=== PATIENT | female | born 1935 | race Caucasian/White ===

== ENCOUNTER 2016-04-02 18:20 | Emergency (ER) | payer MEDICARE, OTHER ==
[~2016-04-02 18:20] MED LIST: ASPI81TA82 PO; CLOT1%T TOPICAL; LEVE500T10 PO; METO50TA OR; SENN8.8S7 PO; SERO200T PO; WAL-10TA2 PO
[2016-04-02 18:23] VITALS: BP 132/85; PULSE 97; RESP 20; TEMP 97.4; O2SAT 96
--- NOTE | 2016-04-02 18:26 | PD ---
HPI Chief Complaint: Cold / Flu Symptoms Time Seen by Provider: 18:27 Travel History International Travel<30 days: No Contact w/Intl Traveler<30days: No Traveled to known affect area: No History of Present Illness HPI 80-year-old female was brought to the emergency room by EMS for fever, cough and lethargy. Patient has significant dementia and her daughter is her primary pulvi mixer operator. Her daughter followed the ambulance and she is currently here giving the history. Patient has history of the multiple UTIs when she has presented in similar manner in the past. Daughter has been giving her pured food and liquid and patient has been taking her medications. However she was concerned because of the cough and wanted her to be seen. She was unable to bring her by herself since patient needs a lot of assistance usually. Because of that reason patient gets home visits by her doctor. Her vital signs were stable in the emergency room. Patient has significant dementia and appears sleepy and unable to give any meaningful history. PFSH Past Medical History Narrative Medical List of her past medical history was reviewed from the nursing note. Alzheimer's Disease: Yes Anxiety: Yes Depression: Yes Cancer: No Cardiovascular Problems: Yes High Cholesterol: Yes Congestive Heart Failure: No Cerebrovascular Accident: No Dementia: Yes Diabetes: No Diminished Hearing: Yes Endocrine: Yes (PARATHYROID) Gastrointestinal Disorders: Yes GERD: Yes Genitourinary: Yes (INCONTINENT, UTIS) Immune Disorder: No Implanted Vascular Access Dvce: No Kidney Stones: No Musculoskeletal: Yes Psychiatric: Yes Reproductive: No Respiratory: No Immunizations Current: Yes Seizures: No Menopausal: Yes Past Surgical History Abdominal Surgery: No Cardiac Surgery: Yes (TRIPLE BYPASS CABG) 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 ) Genitourinary Surgery: No Gynecologic Surgery: No Other Surgery: Yes Social History Alcohol Use: No Tobacco Use: No Substance Use: No (UNABLE TO ASSESS) Allergies-Medications (Allergen,Severity, Reaction): Coded Allergies: Namenda (Unverified Allergy, Severe, Confusion, 04/02/16) Lovastatin (Unverified Allergy, Intermediate, unknown per family, 04/02/16) Risperidone (Unverified Allergy, Intermediate, Confusion, 04/02/16) Vesicare (Unverified Allergy, Intermediate, Confusion, 04/02/16) Macrobid (Verified Allergy, Unknown, 04/02/16) Penicillin (Verified Allergy, Unknown, UNKNOWN REACTION, 04/02/16) *MDRO Multi-Drug Resistant Organism (Verified Adverse Reaction, Unknown, ) KPC+Klebsiella Pneu (urine-12/27/15) Comments List of allergies reviewed from the nursing note. Reported Meds & Prescriptions Reported Meds & Active Scripts Active Zithromax Liq (Azithromycin) 200 Mg/5 Ml Susp 250 Mg PO DIRECTED 5 Days Take 500 mg (12.5 mL) Day 1 then 250 mg (6.25 mL) on Days 2 to 5. Reported Seroquel (Quetiapine Fumarate) 200 Mg Tab 200 Mg PO BID Levetiracetam 500 Mg Tab 500 Mg PO BID Metoprolol Tartrate 25 Mg Tab 25 Mg PO DAILY Narrative Medication List of her home medications reviewed from the nursing note. Review of Systems Except as stated in HPI: all other systems reviewed are Neg Physical Exam Narrative GENERAL: Elderly, sleepy, dementia, agitated upon exam SKIN: Warm and dry. HEAD: Atraumatic. Normocephalic. EYES: Pupils equal and round. No scleral icterus. No injection or drainage. ENT: No nasal bleeding or discharge. Mucous membranes pink and moist. NECK: Trachea midline. No JVD. CARDIOVASCULAR: Regular rate and rhythm. No murmur appreciated. RESPIRATORY: No accessory muscle use. Clear to auscultation. Breath sounds equal bilaterally. GASTROINTESTINAL: Abdomen soft, non-tender, nondistended. Hepatic and splenic margins not palpable. MUSCULOSKELETAL: No obvious deformities. No clubbing. No cyanosis. No edema. NEUROLOGICAL: Somnolent, gets agitated on exam, uses clear words when talking but does not make sense. As per daughter that is her baseline. PSYCHIATRIC: Agitated, unable to assess Data Data Last Documented VS Vital Signs Date Time Temp Pulse Resp B/P Pulse Ox O2 Delivery O2 Flow Rate FiO2 04/03/16 01:00 78 18 130/86 97 04/02/16 18:23 97.4 Orders Electrocardiogram (04/02/16 18:40) Basic Metabolic Panel (Bmp) (04/02/16 18:40) Complete Blood Count With Diff (04/02/16 18:40) Troponin I (04/02/16 18:40) Lactic Acid Sepsis Protocol (04/02/16 18:40) Urinalysis - C+S If Indicated (04/02/16 18:40) Blood Culture (04/02/16 18:40) Chest, Single Ap (04/02/16 18:40) Ct Brain W/O Iv Contrast(Rout) (04/02/16 18:40) Blood Glucose (04/02/16 18:40) Ecg Monitoring (04/02/16 18:40) Iv Access Insert/Monitor (04/02/16 18:40) Oximetry (04/02/16 18:40) Sodium Chloride 0.9% Flush (Ns Flush) (04/02/16 18:45) ^ Straight Catheter (04/02/16 18:40) Influenzae A/B Antigen (04/02/16 18:40) Group A Rapid Strep Screen (04/02/16 20:30) Strep Culture (Group A) (04/02/16 20:44) Azithromycin Inj (Zithromax Inj) (04/02/16 21:15) Sodium Chlorid 0.9% 500 Ml Inj (Ns 500 M (04/02/16 22:00) Labs Laboratory Tests Test 04/02/16 04/02/16 18:55 19:55 White Blood Count 6.2 TH/MM3 Red Blood Count 4.34 MIL/MM3 Hemoglobin 13.2 GM/DL Hematocrit 39.0 % Mean Corpuscular Volume 89.9 FL Mean Corpuscular Hemoglobin 30.4 PG Mean Corpuscular Hemoglobin 33.8 % Concent Red Cell Distribution Width 12.9 % Platelet Count 202 TH/MM3 Mean Platelet Volume 8.8 FL Neutrophils (%) (Auto) 63.6 % Lymphocytes (%) (Auto) 21.8 % Monocytes (%) (Auto) 9.2 % Eosinophils (%) (Auto) 4.0 % Basophils (%) (Auto) 1.4 % Neutrophils # (Auto) 4.0 TH/MM3 Lymphocytes # (Auto) 1.3 TH/MM3 Monocytes # (Auto) 0.6 TH/MM3 Eosinophils # (Auto) 0.2 TH/MM3 Basophils # (Auto) 0.1 TH/MM3 CBC Comment DIFF FINAL Differential Comment Sodium Level 139 MEQ/L Potassium Level 4.3 MEQ/L Chloride Level 104 MEQ/L Carbon Dioxide Level 24.8 MEQ/L Anion Gap 10 MEQ/L Blood Urea Nitrogen 20 MG/DL Creatinine 0.71 MG/DL Estimat Glomerular Filtration 79 ML/MIN Rate Random Glucose 110 MG/DL Lactic Acid Level 1.4 mmol/L Calcium Level 9.4 MG/DL Troponin I LESS THAN 0.02 NG/ML Urine Color YELLOW Urine Turbidity CLEAR Urine pH 6.0 Urine Specific [place] 1.022 Urine Protein NEG mg/dL Urine Glucose (UA) NEG mg/dL Urine Ketones NEG mg/dL Urine Occult Blood SMALL Urine Nitrite NEG Urine Bilirubin NEG Urine Leukocyte Esterase NEG Urine RBC 4-9 /hpf Urine WBC 0-2 /hpf Urine Squamous Epithelial 0-5 /hpf Cells Urine Bacteria NONE /hpf Microscopic Urinalysis Comment CATH-CULT NOT IND MDM Medical Decision Making Medical Screen Exam Complete: Yes Emergency Medical Condition: Yes Medical Record Reviewed: Yes Interpretation(s) Twelve-lead EKG was reviewed by me. Normal sinus rhythm, normal axis, nonspecific ST-T wave changes. Heart rate of 90 bpm. Differential Diagnosis UTI, pneumonia, sepsis, dehydration, CVA Narrative Course 9:19 PM blood test results and urine analysis is back and within normal limits. Chest x-ray suggestive of left lower lobe atelectasis. I discussed all this with the daughter. She was once again concerned about the cough and I told her that I would treat her with antibiotic with possible developing pneumonia although blood test is not really suggestive. Fact that the cough is concerning and she has fever she will be treated for that. Daughter wanted to take her home and I think it is not unreasonable at this point. Daughter seems quite capable of taking care of her and has been doing it for quite some time now. As per daughter every time she gets admitted to the hospital her dementia worsens and she gets very difficult to handle and she feels more comfortable at home. She was given instructions regarding the symptoms to bring her back to the emergency room. Asked her to call her primary care doctor tomorrow and have the home visit done for Thursday. I'm comfortable discharging her home at this point. Procedures EKG Prior to Arrival: No Diagnosis Primary Impression: Fever Qualified Code: R50.9 - Fever, unspecified fever cause Additional Impressions: Dementia Qualified Code: F03.90 - Dementia without behavioral disturbance, unspecified dementia type Pneumonia Qualified Code: J18.1 - Pneumonia of left lower lobe due to infectious organism Referrals: Primary Care Physician 2 days Additional Instructions: Please return to the ER if symptoms worsen or any other new concerns like respiratory distress, worsening lethargy, poor oral intake. Otherwise take the medication as per the prescription direction and have her primary care see her on Thursday. Med/Other Pt SpecificInfo: Prescription(s) given Scripts Azithromycin Liq (Zithromax Liq)200 Mg/5 Ml [id number] Mg PO DIRECTED 5 Days Ref 0 Take 500 mg (12.5 mL) Day 1 then 250 mg (6.25 mL) on Days 2 to 5. Prov:Ashley Gillespie MD 04/02/16 Disposition: 01 DISCHARGE HOME Condition: Stable Ashley Gillespie MD Apr 02, 2016 18:26
[2016-04-02] MEDS ORDERED: METO25TA3 PO (18:28)
[2016-04-02] MEDS ORDERED: LEVE500T8 PO (18:28)
[2016-04-02] MEDS ORDERED: SERO200T PO (18:28)
[2016-04-02] MEDS ORDERED: SODIUM CHLORIDE 0.9% FLUSH 5 ML FLUSH IVF PRN (18:45)
[2016-04-02 19:05] VITALS: O2SAT 97
[2016-04-02 19:14] LABS: BASOPHIL # 0.1 TH/MM3 (0-0.2); BASOPHIL % 1.4 % (0.0-2.0); EOSINOPHIL # 0.2 TH/MM3 (0-0.4); HEMO FLAGS DIFF FINAL; LYMPH % 21.8 % (9.0-44.0); LYMPHOCYTE # 1.3 TH/MM3 (1.0-4.8); MEAN CELL VOLUME 89.9 FL (80.0-100.0); MEAN CORPUSCULAR HEMOGLOBIN 30.4 PG (27.0-34.0); MEAN CORPUSCULAR HGB CONC 33.8 % (32.0-36.0); MONO % 9.2 % (0.0-8.0); NEUT % 63.6 % (16.0-70.0); PLATELET COUNT 202 TH/MM3 (150-450); RED BLOOD COUNT 4.34 MIL/MM3 (4.00-5.30); RED CELL DISTRIBUTION WIDTH 12.9 % (11.6-17.2); WHITE BLOOD COUNT 6.2 TH/MM3 (4.0-11.0)
[2016-04-02 19:20] LABS: CHLORIDE 104 MEQ/L (98-107); POTASSIUM 4.3 MEQ/L (3.5-5.1); SODIUM (NA) 139 MEQ/L (136-145)
[2016-04-02 19:23] LABS: ANION GAP 10 MEQ/L (5-15); BICARBONATE 24.8 MEQ/L (21.0-32.0); BLOOD UREA NITROGEN 20 MG/DL (7-18)
[2016-04-02 19:26] LABS: GLOMERULAR FILTRATION RATE 79 ML/MIN (>89)
--- NOTE | 2016-04-02 19:46 | RADHPO ---
EXAM DATE/TIME: 04/02/2016 19:26 [facility] COMPARISON: CHEST SINGLE AP, December 27, 2015, 12:13. CHEST SINGLE AP, December 29, 2015, 10:54. INDICATIONS : Syncopal episode today MEDICAL HISTORY : Hypertension. Cardiovascular disease. SURGICAL HISTORY : CABG. ENCOUNTER: Initial ACUITY: 1 day PAIN SCORE: Non-responsive. LOCATION: Bilateral chest FINDINGS: A single view of the chest demonstrates the lungs to be symmetrically aerated without evidence of mas s, infiltrate or effusion. Minimal left basilar density. Cardiomegaly and CABG. The cardiomediastinal contours are unremarkable. Osseous structures are intact. CONCLUSION: 1. Cardiomegaly and previous CABG. 2. Minimal left basilar density likely representing atelectasis/scarring. Parviz Bonner MD on April 02, 2016 at 19:43 Board Certified Radiologist. This report was verified electronically.
[2016-04-02 20:07] LABS: BLOOD, URINE SMALL (NEG); GLUCOSE,URINE NEG (NEG); KETONE, URINE NEG (NEG); NITRITE,URINE NEG (NEG)
[2016-04-02 20:09] LABS: URINE COLOR YELLOW (YELLW/STRAW)
[2016-04-02 20:11] LABS: COMMENT (UR) CATH-CULT NOT IND; CULTURE IF INDICATED CATH CULTURE NOT IND; SQUAMOUS EPITHELIAL CELL URINE 0-5 /hpf (0-5); WBC, URINE 0-2 /hpf (0-5)
--- NOTE | 2016-04-02 20:11 | RADHPO ---
EXAM DATE/TIME: 04/02/2016 19:32 [facility] COMPARISON: CT BRAIN W/O CONTRAST, December 27, 2015, 11:42. INDICATIONS : Altered mental status and general weakness. RADIATION DOSE: 39.18 CTDIvol (mGy) MEDICAL HISTORY : Cardiovascular disease. Cerebrovascular disease. Hypertension.Alzheimer's and dementia. SURGICAL HISTORY : CABG ENCOUNTER: Initial ACUITY: 1 day PAIN SCALE: Non-responsive LOCATION: cranial TECHNIQUE: Multiple contiguous axial images were obtained of the head. Using automated exposure control and adj ustment of the mA and/or kV according to patient size, radiation dose was kept as low as reasonably a chievable to obtain optimal diagnostic quality images. FINDINGS: There is marked central and cortical atrophy with dilatation of ventricular and sulcal spaces. There is no parenchymal hemorrhage, acute infarction or mass lesion identified. There are no extra-axial fluid collections appreciated. The posterior fossa is unremarkable with midline fourth ventricle. T he portion of the orbits and paranasal sinuses visualized are unremarkable. Left cerebellar atrophy. Left eye prosthesis. CONCLUSION: Chronic changes including atrophy.. Parviz Bonner MD on April 02, 2016 at 20:08 Board Certified Radiologist. This report was verified electronically.
[2016-04-02] MEDS ORDERED: AZITHROMYCIN INJ 500 MG in SODIUM CHLOR 0.9% 250 ML INJ 250 ML IV ONE (21:15)
[2016-04-02] MEDS ORDERED: AZIT200S PO (21:25)
[2016-04-02] MEDS ORDERED: SODIUM CHLORID 0.9% 500 ML INJ 500 ML IV ONE (22:00)
[2016-04-03 01:00] VITALS: BP 130/86
--- NOTE | 2016-04-03 12:23 | EKG ---
Date Performed: 04/02/2016 Time Performed: 19:05:14 PTAGE: 80 years EKG: Sinus rhythm Abnormal R wave progression Low precordial lead voltage Suspect changes in lead placement Compared t o previous tracing, in the anterior leads, voltage has decreased. Abnormal ECGPREVIOUS TRACING : 12/27/2015 11.08 DOCTOR: Alex Neumann Interpretating Date/Time 04/03/2016 12:21:39
== END 2016-04-03 01:19 | disposition home or self-care (01) ==
LOC: PHEFT 18:20
DX: J18.1 Lobar pneumonia, unspecified organism (principal); F02.80 Dementia in other diseases classified elsewhere, unspecified severity, without behavioral disturbance, psychotic disturbance, mood disturbance, and anxiety; G30.9 Alzheimer's disease, unspecified; R94.31 Abnormal electrocardiogram [ECG] [EKG]
CPT/HCPCS: 70450; 71010; 80048; 81001; 83605; 84484; 85025; 87040; 87081; 87804; 87880; 93005; 96365; 99285; J0456; J7040; J7050

== ENCOUNTER 2017-02-01 14:50 | Inpatient (IN) | payer OTHER, MEDICARE ==
[~2017-02-01] VITALS: Ht 170.2 cm; Wt 68.4 kg
[~2017-02-01 14:50] MED LIST changes: -ASPI81TA82 PO; +AZIT200S PO; -CLOT1%T TOPICAL; -LEVE500T10 PO; +LEVE500T8 PO; +METO25TA3 PO; -METO50TA OR; -SENN8.8S7 PO; -WAL-10TA2 PO
[2017-02-01 14:57] VITALS: BP 100/57; PULSE 100; RESP 18; TEMP 98; O2SAT 94
[2017-02-01] MEDS ORDERED: LORA-650 PO (15:03)
[2017-02-01] MEDS ORDERED: ASPI-516 CHEW (15:03)
--- NOTE | 2017-02-01 15:09 | PD ---
HPI Chief Complaint: Cold / Flu Symptoms Time Seen by Provider: 15:08 Travel History International Travel<30 days: No Contact w/Intl Traveler<30days: No Traveled to known affect area: No History of Present Illness HPI 81-year-old female with significant dementia was brought in by her daughter who takes care of her for cough. She says that her cough sounds croupy that got worse since yesterday. Mental status garcia she is at her baseline as per the daughter. She had a temperature 101 this morning. Patient had a temperature of 99.5 in triage. She does not require oxygen at home. Patient is in no condition to give any meaningful history. History comes from the daughter. As per her no history of vomiting or diarrhea. She has been eating and drinking at her baseline. [facility] Past Medical History Narrative Medical List of her past medical, surgical, social and family history was reviewed from the nursing note. Alzheimer's Disease: Yes Anxiety: Yes Depression: Yes Cancer: No Cardiovascular Problems: Yes High Cholesterol: Yes Congestive Heart Failure: No Cerebrovascular Accident: No Dementia: Yes Diabetes: No Diminished Hearing: Yes Endocrine: Yes (PARATHYROID) Gastrointestinal Disorders: Yes GERD: Yes Genitourinary: Yes (INCONTINENT, UTIS) Immune Disorder: No Implanted Vascular Access Dvce: No Kidney Stones: No Musculoskeletal: Yes Psychiatric: Yes Reproductive: No Respiratory: No Immunizations Current: Yes Seizures: No ?: Not Menopausal: Yes Past Surgical History Abdominal Surgery: No Cardiac Surgery: Yes (TRIPLE BYPASS CABG) 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 ) Genitourinary Surgery: No Gynecologic Surgery: No Other Surgery: Yes Social History Alcohol Use: No Tobacco Use: No Substance Use: No (UNABLE TO ASSESS) Allergies-Medications (Allergen,Severity, Reaction): Coded Allergies: memantine (Unverified Allergy, Severe, Confusion, 11/04/16) latex (Verified Allergy, Intermediate, Swelling, 02/06/17) lovastatin (Unverified Allergy, Intermediate, unknown per family, 11/04/16) risperidone (Unverified Allergy, Intermediate, Confusion, 11/04/16) solifenacin (Unverified Allergy, Intermediate, Confusion, 11/04/16) nitrofurantoin (Unverified Allergy, Unknown, 11/04/16) penicillin G (Unverified Allergy, Unknown, UNKNOWN REACTION, 11/04/16) levofloxacin (Verified Adverse Reaction, Severe, 02/09/17) SWELLING OF MOUTH AND LIPS *MDRO Multi-Drug Resistant Organism (Verified Adverse Reaction, Unknown, ) KPC+Klebsiella Pneu (urine-12/27/15) Comments List of her allergies reviewed from the nursing note. Reported Meds & Prescriptions Reported Meds & Active Scripts Active Reported Allergy Relief (Loratadine) 10 Mg Tab 10 Mg PO DAILY Aspirin 81 Mg Chew 81 Mg CHEW DAILY Seroquel (Quetiapine Fumarate) 200 Mg Tab 200 Mg PO BID Levetiracetam 500 Mg Tab 500 Mg PO BID Metoprolol Tartrate 25 Mg Tab 25 Mg PO DAILY Narrative Medication List of her home medications reviewed from the nursing note. Review of Systems ROS Limitations: Altered Mental Status Except as stated in HPI: all other systems reviewed are Neg Respiratory: Positive: Cough Physical Exam Narrative GENERAL: Lethargic, elderly, significant dementia SKIN: Focused skin assessment warm/dry. HEAD: Atraumatic. Normocephalic. EYES: Pupils equal and round. No scleral icterus. No injection or drainage. ENT: No nasal bleeding or discharge. Mucous membranes pink and moist. NECK: Trachea midline. No JVD. CARDIOVASCULAR: Regular rate and rhythm. No murmur appreciated. RESPIRATORY: No accessory muscle use. Clear to auscultation. Breath sounds equal bilaterally. GASTROINTESTINAL: Abdomen soft, non-tender, nondistended. Hepatic and splenic margins not palpable. MUSCULOSKELETAL: No obvious deformities. No clubbing. No cyanosis. No edema. NEUROLOGICAL: Advanced dementia. Not following commands. Lethargic PSYCHIATRIC: Unable to assess Data Data Last Documented VS Orders Orders Complete Blood Count With Diff (02/01/17 15:45) Comprehensive Metabolic Panel (02/01/17 15:45) Lactic Acid Sepsis Protocol (02/01/17 15:45) Urinalysis - C+S If Indicated (02/01/17 15:45) Blood Culture (02/01/17 15:45) Chest, Single Ap (02/01/17 15:45) Blood Glucose (02/01/17 15:45) Ecg Monitoring (02/01/17 15:45) Iv Access Insert/Monitor (02/01/17 15:45) Oximetry (02/01/17 15:45) Oxygen Administration (02/01/17 15:45) Sodium Chlor 0.9% 1000 Ml Inj (Ns 1000 M (02/01/17 15:45) Sodium Chlor 0.9% 1000 Ml Inj (Ns 1000 M (02/01/17 15:45) Sodium Chlor 0.9% 1000 Ml Inj (Ns 1000 M (02/01/17 15:45) ^ Straight Catheter (02/01/17 15:45) Aztreonam Inj (Azactam Inj) (02/01/17 16:45) Vancomycin Inj (Vancomycin Inj) (02/01/17 16:45) Admit Order (Ed Use Only) (02/01/17 16:55) Labs Laboratory Tests Test 02/01/17 16:27 02/01/17 16:35 White Blood Count 7.4 TH/MM3 Red Blood Count 4.57 MIL/MM3 Hemoglobin 14.1 GM/DL Hematocrit 42.0 % Mean Corpuscular Volume 91.7 FL Mean Corpuscular Hemoglobin 30.7 PG Mean Corpuscular Hemoglobin Concent 33.5 % Red Cell Distribution Width 13.4 % Platelet Count 189 TH/MM3 Mean Platelet Volume 9.6 FL Neutrophils (%) (Auto) 80.8 % Lymphocytes (%) (Auto) 9.7 % Monocytes (%) (Auto) 6.2 % Eosinophils (%) (Auto) 3.1 % Basophils (%) (Auto) 0.2 % Neutrophils # (Auto) 6.0 TH/MM3 Lymphocytes # (Auto) 0.7 TH/MM3 Monocytes # (Auto) 0.5 TH/MM3 Eosinophils # (Auto) 0.2 TH/MM3 Basophils # (Auto) 0.0 TH/MM3 CBC Comment DIFF FINAL Differential Comment Blood Urea Nitrogen 33 MG/DL Creatinine 0.91 MG/DL Random Glucose 116 MG/DL Total Protein 7.8 GM/DL Albumin 3.4 GM/DL Calcium Level 10.0 MG/DL Alkaline Phosphatase 90 U/L Aspartate Amino Transf (AST/SGOT) 24 U/L Alanine Aminotransferase (ALT/SGPT) 27 U/L Total Bilirubin 0.5 MG/DL Sodium Level 138 MEQ/L Potassium Level 4.3 MEQ/L Chloride Level 104 MEQ/L Carbon Dioxide Level 27.1 MEQ/L Anion Gap 7 MEQ/L Estimat Glomerular Filtration Rate 59 ML/MIN Lactic Acid Level 2.1 mmol/L Urine Collection Type CATH Urine Color YELLOW Urine Turbidity SLIGHT Urine pH 5.5 Urine Specific [place] 1.026 Urine Protein NEG mg/dL Urine Glucose (UA) NEG mg/dL Urine Ketones NEG mg/dL Urine Occult Blood TRACE Urine Nitrite NEG Urine Bilirubin NEG Urine Leukocyte Esterase SMALL Urine RBC 4-9 /hpf Urine WBC 9-14 /hpf Urine Squamous Epithelial Cells 0-5 /hpf Urine Hyaline Casts 15-19 /lpf Microscopic Urinalysis Comment CULTURE INDICATED Urine Collection Time 16:35 [facility] Medical Decision Making Medical Screen Exam Complete: Yes Emergency Medical Condition: Yes Medical Record Reviewed: Yes Differential Diagnosis Sepsis, pneumonia, UTI Narrative Course 5 PM blood test results were back along with the chest x-ray. The chest x-ray shows significant density in the left hemithorax as per the radiologist. This could be effusion along with pneumonia. I gave antibiotic as per the sepsis protocol. I discussed this with the daughter and she understands the reason for admission. I discussed the case with the hospitalist was accepted the patient. Her lactic acid is elevated in the UA suggestive of UTI. Critical Care Narrative Aggregate critical care time was 30 minutes. Time to perform other separately billable procedures was not included in the critical care time. My time did not include minutes spent treating any other patients simultaneously or on activities that did not directly contribute to the patient's treatment. The services I provided to this patient were to treat and/or prevent clinically significant deterioration that could result in: Sepsis, sepsis protocol I provided critical care services requiring my management, as noted below: Chart data review, documentation time, medication orders and management, vital sign assessments/reviewing monitor data, ordering and reviewing lab tests, ordering and interpreting/reviewing x-rays and diagnostic studies, care of the patient and discussion of the patient with the admitting physicians. Procedures EKG Prior to Arrival: No Diagnosis Primary Impression: UTI (urinary tract infection) Qualified Codes: N39.0 - Urinary tract infection, site not specified Additional Impressions: UTI/suspected sepsis, ESBL Klebsiella Pleural effusion Advanced dementia Admitting Information Admitting Physician Requests: Admit Scripts [Nystatin Liq] 5 ML SUSP No Conflict Check 5 ML SWISH-SWAL QID, #100 Prov: Parviz Tubbs MD 02/09/17 Ashley Gillespie MD Feb 01, 2017 15:09
[2017-02-01] MEDS ORDERED: SODIUM CHLOR 0.9% 1000 ML INJ 1,000 ML IV ONE ×2 (15:45)
[2017-02-01] MEDS ORDERED: SODIUM CHLOR 0.9% 1000 ML INJ 400 ML IV ONE (15:45)
--- NOTE | 2017-02-01 16:22 | RADRPT ---
EXAM DATE/TIME: 02/01/2017 15:56 [facility] COMPARISON: CHEST SINGLE AP, April 02, 2016, 19:26. INDICATIONS : Fever, cough MEDICAL HISTORY : Hypertension. Cardiovascular disease. SURGICAL HISTORY : CABG. ENCOUNTER: Initial ACUITY: 3 days PAIN SCORE: Non-responsive. LOCATION: Bilateral chest FINDINGS: A single view of the chest demonstrates opacification and severe volume loss in the left hemithorax. Possible associated effusion. Right lung is clear. Intact median sternotomy wires with regional surgi robe clips characteristic of prior CABG. Osseous demineralization but the bony structures are intact. CONCLUSION: 1. Consolidation and volume loss in the left hemithorax with possible associated effusion. 2. Right lung remains clear. Robby Kenny MD on February 01, 2017 at 16:19 Board Certified Radiologist. This report was verified electronically.
[2017-02-01 16:44] LABS: BLOOD, URINE TRACE (NEG); GLUCOSE,URINE NEG (NEG); KETONE, URINE NEG (NEG); NITRITE,URINE NEG (NEG); PH, URINE 5.5 (5.0-8.5)
[2017-02-01 16:45] LABS: BASOPHIL % 0.2 % (0.0-2.0); EOSINOPHIL # 0.2 TH/MM3 (0-0.4); EOSINOPHIL % 3.1 % (0.0-4.0); HEMO FLAGS DIFF FINAL; LYMPH % 9.7 % (9.0-44.0); LYMPHOCYTE # 0.7 TH/MM3 (1.0-4.8); MEAN CELL VOLUME 91.7 FL (80.0-100.0); MEAN CORPUSCULAR HEMOGLOBIN 30.7 PG (27.0-34.0); MEAN CORPUSCULAR HGB CONC 33.5 % (32.0-36.0); MONO % 6.2 % (0.0-8.0); NEUT % 80.8 % (16.0-70.0); PLATELET COUNT 189 TH/MM3 (150-450); RED BLOOD COUNT 4.57 MIL/MM3 (4.00-5.30); RED CELL DISTRIBUTION WIDTH 13.4 % (11.6-17.2); WHITE BLOOD COUNT 7.4 TH/MM3 (4.0-11.0)
[2017-02-01] MEDS ORDERED: VANCOMYCIN INJ 1,000 MG in SODIUM CHLOR 0.9% 250 ML INJ 250 ML IV ONE (16:45)
[2017-02-01] MEDS ORDERED: AZTREONAM INJ 2,000 MG in SODIUM CHLORIDE 0.9% INJ 100 ML IV ONE (16:45)
[2017-02-01 16:48] VITALS: BP 124/84; PULSE 110; RESP 20; O2SAT 92
[2017-02-01 16:54] LABS: CHLORIDE 104 MEQ/L (98-107); POTASSIUM 4.3 MEQ/L (3.5-5.1); SODIUM (NA) 138 MEQ/L (136-145)
[2017-02-01 16:58] LABS: ANION GAP 7 MEQ/L (5-15); BICARBONATE 27.1 MEQ/L (21.0-32.0); BLOOD UREA NITROGEN 33 MG/DL (7-18)
[2017-02-01 17:01] LABS: ALT (GPT) 27 U/L (10-53); AST (GOT) 24 U/L (15-37); GLOMERULAR FILTRATION RATE 59 ML/MIN (>89)
[2017-02-01 17:03] LABS: TOTAL BILIRUBIN ADULT 0.5 MG/DL (0.2-1.0)
[2017-02-01 17:04] LABS: ALKALINE PHOSPHATASE 90 U/L (45-117)
[2017-02-01 17:04] LABS: METHOD OF COLLECTION CATH; URINE COLOR YELLOW (YELLW/STRAW)
[2017-02-01 17:05] LABS: HYALINE CAST, URINE 15-19 /lpf (RARE)
[2017-02-01 17:06] LABS: COMMENT (UR) CULTURE INDICATED; CULTURE IF INDICATED CULTURE INDICATED; SQUAMOUS EPITHELIAL CELL URINE 0-5 /hpf (0-5)
[2017-02-01 18:00] VITALS: BP 147/69; PULSE 106; RESP 24; TEMP 98.2; O2SAT 94
[2017-02-01 18:40] LABS: LACTIC ACID GHOST NOT REPORTABLE
[2017-02-01] MEDS ORDERED: ONDANSETRON HCL 4 MG/2 ML VIAL IV PUSH PRN (18:45)
[2017-02-01] MEDS ORDERED: RESP: ALBUTEROL 2.5 MG/IPRATROPIUM 0.5 MG NEB (PRN) INH (18:45)
[2017-02-01] MEDS ORDERED: SODIUM CHLORIDE 0.9% FLUSH 10 ML FLUSH IV FLUSH PRN (18:45)
[2017-02-01] MEDS ORDERED: ACETAMINOPHEN 325 MG TAB PO PRN (18:45)
--- NOTE | 2017-02-01 18:58 | HHI.HP ---
HPI Service [facility] Primary Care Physician Unknown Admission Diagnosis sepsis, pneumonia, advanced dementia Diagnoses: (1) UTI (urinary tract infection) Diagnosis: Principal (2) Pleural effusion Diagnosis: Principal (3) Abnormal chest x-ray Diagnosis: Principal Chief Complaint: Cough and fever Travel History International Travel<30 Days: No Contact w/Intl Traveler <30 Da: No Traveled to Known Affected Are: No Sepsis Criteria SIRS Criteria (2 or more): Heart rate over 90 Sepsis Criteria (SIRS+source): Infect source susp/known Severe Sepsis (+one): Lactate >2 History of Present Illness Written by Rony Degroot, acting as scribe for Dr. Barton on 02/01/17 at 18:31. 81-year-old female with rather significant medical history of advanced dementia , bedridden, coronary artery disease, hyperlipidemia, urinary incontinence, chronic urinary tract infection who is brought to the hospital by her daughter because of fever and cough. Patient is unable to give any information, information taken from daughter at bedside. Patient's daughter states that last night that she had a fever 101.0. And she has had a croupy cough for the last 3 days. Because of those reasons she brought her mother to the hospital for evaluation. She denies any other symptoms. There is no shortness of breath , sputum production, change in mentation, denies any increased somnolence, no decrease in oral intake. Patient had workup done emergency department and chest x-ray shows complete opacification of the left lung. Because of that reason the ER physician recommended patient be admitted for further evaluation and management. The daughter indicates that she does not have any [place] DO NOT RESUSCITATE order, healthcare surrogacy, or living will. Records do indicate that one year ago she was evaluated by palliative care and at that time she was a DNR. As indicated that she lacks capacity for any decision making and will not regain that capacity. Apparently the patient has been in hospice before and was discharged from hospice in August 2015. It was indicated that patient is eligible for hospice services as the family chooses to transition to comfort care. At the present time will continue workup for the patient's complete opacification of her left lung. Further plans depending on results and patient's response to treatment. Review of Systems Constitutional: COMPLAINS OF: Fever Respiratory: COMPLAINS OF: Cough Past Family Social History Past Medical History Patient unable to give any information, information taken from medical records Blindness Dementia Hyperparathyroidism Osteoporosis Chronic UTI's Seizures starting May 2015 Deaf in right ear, hearing loss left ear Sundowning Glaucoma Retinal detachment Urinary incontinence Coronary artery disease status post grafting Past Surgical History Patient unable to give any information, information taken from medical records Triple bypass 2010 Carpal tunnel surgery left hip replacement Bladder sling Multiple eye surgeries Reported Medications Reported Meds & Active Scripts Active Reported Allergy Relief (Loratadine) 10 Mg Tab 10 Mg PO DAILY Aspirin 81 Mg Chew 81 Mg CHEW DAILY Seroquel (Quetiapine Fumarate) 200 Mg Tab 200 Mg PO BID Levetiracetam 500 Mg Tab 500 Mg PO BID Metoprolol Tartrate 25 Mg Tab 25 Mg PO DAILY Allergies: Coded Allergies: memantine (Unverified Allergy, Severe, Confusion, 11/04/16) lovastatin (Unverified Allergy, Intermediate, unknown per family, 11/04/16) risperidone (Unverified Allergy, Intermediate, Confusion, 11/04/16) solifenacin (Unverified Allergy, Intermediate, Confusion, 11/04/16) nitrofurantoin (Unverified Allergy, Unknown, 11/04/16) penicillin G (Unverified Allergy, Unknown, UNKNOWN REACTION, 11/04/16) *MDRO Multi-Drug Resistant Organism (Verified Adverse Reaction, Unknown, ) KPC+Klebsiella Pneu (urine-12/27/15) Family History Records do not indicate any significant family history Social History Lives with daughter, no indication of tobacco, alcohol or illicit drugs Physical Exam Vital Signs Vital Signs Date Time Temp Pulse Resp B/P (MAP) Pulse Ox O2 Delivery O2 Flow Rate FiO2 02/01/17 18:08 02/01/17 16:48 92 02/01/17 16:48 110 20 124/84 (97) 92 02/01/17 14:57 98.0 100 18 100/57 (71) 94 Physical Exam GENERAL: Well-developed, cachectic and contracted, in no acute distress. She is arousable HEENT: Head is normocephalic without any lesions or masses noted. Facial features are symmetric. Eyes: Pupils equal round reactive to light. Conjunctivae were clear. NECK: Is in constant flexed position. No JVD, no bruits are appreciated CARDIAC: Regular rhythm, regular rate. S1/S2 are heard. No murmurs gallops or rubs. LUNGS: Difficult to ascertain breath sounds secondary to persistent rattling in upper airway, no use of accessory muscles on inspiration or expiration. ABDOMEN: Soft, nontender. Nondistended. Bowel sounds heard in all 4 quadrants. No organomegaly or masses. Negative rebound, negative guarding EXTREMITIES: No edema, pulses are equal bilaterally. No cyanosis or clubbing NEUROLOGY: Patient with significant dementia Cranial nerves II through XII grossly intact. Laboratory Laboratory Tests Test 02/01/17 16:27 02/01/17 16:35 White Blood Count 7.4 Red Blood Count 4.57 Hemoglobin 14.1 Hematocrit 42.0 Mean Corpuscular Volume 91.7 Mean Corpuscular Hemoglobin 30.7 Mean Corpuscular Hemoglobin Concent 33.5 Red Cell Distribution Width 13.4 Platelet Count 189 Mean Platelet Volume 9.6 Neutrophils (%) (Auto) 80.8 Lymphocytes (%) (Auto) 9.7 Monocytes (%) (Auto) 6.2 Eosinophils (%) (Auto) 3.1 Basophils (%) (Auto) 0.2 Neutrophils # (Auto) 6.0 Lymphocytes # (Auto) 0.7 Monocytes # (Auto) 0.5 Eosinophils # (Auto) 0.2 Basophils # (Auto) 0.0 CBC Comment DIFF FINAL Differential Comment Blood Urea Nitrogen 33 Creatinine 0.91 Random Glucose 116 Total Protein 7.8 Albumin 3.4 Calcium Level 10.0 Alkaline Phosphatase 90 Aspartate Amino Transf (AST/SGOT) 24 Alanine Aminotransferase (ALT/SGPT) 27 Total Bilirubin 0.5 Sodium Level 138 Potassium Level 4.3 Chloride Level 104 Carbon Dioxide Level 27.1 Anion Gap 7 Estimat Glomerular Filtration Rate 59 Lactic Acid Level 2.1 Urine Collection Type CATH Urine Color YELLOW Urine Turbidity SLIGHT Urine pH 5.5 Urine Specific [place] 1.026 Urine Protein NEG Urine Glucose (UA) NEG Urine Ketones NEG Urine Occult Blood TRACE Urine Nitrite NEG Urine Bilirubin NEG Urine Leukocyte Esterase SMALL Urine RBC 4-9 Urine WBC 9-14 Urine Squamous Epithelial Cells 0-5 Urine Hyaline Casts 15-19 Microscopic Urinalysis Comment CULTURE INDICATED Urine Collection Time 16:35 Date/Time Source Procedure Growth Status 02/01/17 16:27 Blood Peripheral Aerobic Blood Culture Pending Received 02/01/17 16:27 Blood Peripheral Anaerobic Blood Culture Pending Received 02/01/17 16:35 Urine Catheterized Urine Urine Culture Pending Received Result Diagram: 02/01/17 1627 02/01/17 1627 Imaging Last Impressions Chest X-Ray 02/01/17 1545 Signed Impressions: Service Date/Time: Wednesday, February 01, 2017 15:56 - CONCLUSION: 1. Consolidation and volume loss in the left hemithorax with possible associated effusion. 2. Right lung remains clear. Robby Kenny MD Caparcenio VTE Risk Assessment Caprini VTE Risk Assessment: Mod/High Risk (score >= 2) Caprini Risk Assessment Model Point Value = 1 Point Value = 2 Point Value = 3 Point Value = 5 Age 41-60 Minor surgery BMI > 25 kg/m2 Swollen legs Varicose veins or History of unexplained or recurrent spontaneous Oral contraceptives or hormone replacement Sepsis (< 1 month) Serious lung disease, including pneumonia (< 1 month) Abnormal pulmonary function Acute myocardial infarction Congestive heart failure (< 1 month) History of inflammatory bowel disease Medical patient at bed rest Age 61-74 Arthroscopic surgery Major open surgery (> 45 min) Laparoscopic surgery (> 45 min) Malignancy Confined to bed (> 72 hours) Immobilizing plaster cast Central venous access Age >= 75 History of VTE Family history of VTE Factor V Leiden Prothrombin [id number] Lupus anticoagulant Anticardiolipin antibodies Elevated serum homocysteine Heparin-induced thrombocytopenia Other congenital or acquired thrombophilia Stroke (< 1 month) Elective arthroplasty Hip, pelvis, or leg fracture Acute spinal cord injury (< 1 month) Prophylaxis Regimen Total Risk Factor Score Risk Level Prophylaxis Regimen 0-1 Low Early ambulation 2 Moderate Order ONE of the following: *Sequential Compression Device (SCD) *Heparin 5000 units SQ BID 3-4 Higher Order ONE of the following medications: *Heparin 5000 units SQ TID *Enoxaparin/Lovenox 40 mg SQ daily (WT < 150 kg, CrCl > 30 mL/min) *Enoxaparin/Lovenox 30 mg SQ daily (WT < 150 kg, CrCl > 10-29 mL/min) *Enoxaparin/Lovenox 30 mg SQ BID (WT < 150 kg, CrCl > 30 mL/min) AND/OR *Sequential Compression Device (SCD) 5 or more Highest Order ONE of the following medications: *Heparin 5000 units SQ TID (Preferred with Epidurals) *Enoxaparin/Lovenox 40 mg SQ daily (WT < 150 kg, CrCl > 30 mL/min) *Enoxaparin/Lovenox 30 mg SQ daily (WT < 150 kg, CrCl > 10-29 mL/min) *Enoxaparin/Lovenox 30 mg SQ BID (WT < 150 kg, CrCl > 30 mL/min) AND *Sequential Compression Device (SCD) Assessment and Plan Assessment and Plan SOB - likely 2/2 left lower lobe consolidation -Patient presented with cough and subjective fever. Workup indicated chest x- ray independently reviewed by Dr. Barton showing almost complete opacification of the left lung, unknown etiology, will have to evaluate if there is any postobstructive pneumonia, aspiration, pleural effusion -Obtain stat CT of the chest to rule out and evaluate underlying etiology -We will start treatment for possible consolidative pneumonia at this time for community-acquired/aspiration pneumonia -We'll need to obtain sputum culture, influenza testing -Continue O2 someone takes maintain O2 sats greater than 92% -Duo nebs every 6 hours while awake, and every 2 hours as needed Urinary tract infection -Urinalysis looks contaminated -We'll continue to follow urine culture and adjust antibiotics accordingly Advanced dementia -Patient is relatively bedridden, does not do any function of her own, -Patient's family indicates that she does not have a DNR, healthcare surrogate, living will -We'll get speech therapy for swallow evaluation -Review of medical records indicate patient has been evaluated by palliative care in the past. At that time the patient lacked capacitated for decision making and will not regain that capacity. Patient was DNR at that time -Depending on patient's response to treatment may need palliative care involved again. Chronic kidney disease stage III -Continue follow renal function -Avoid nephrotoxins DVT prevention -Sequential compression devices, avoid chemical prophylaxis at this time, patient may need procedure This note was transcribed by gio Degroot. IPortillo, personally performed the history, physical exam, and medical decision making; and confirmed the accuracy of information in the transcribed note. Authenticated by Portillo Barton on 02/01/17 at 18:50. Physician Certification 2 Midnight Certification Type: Admission for Inpatient Services Order for Inpatient Services The services are ordered in accordance with Medicare regulations or non- Medicare payer requirements, as applicable. In the case of services not specified as inpatient-only, they are appropriately provided as inpatient services in accordance with the 2-midnight benchmark. Estimated LOS (days): 3 days is the estimated time the patient will need to remain in the hospital, assuming treatment plan goals are met and no additional complications. Post-Hospital Plan: Not yet determined Problem Qualifiers (1) UTI (urinary tract infection): Qualified Codes: N39.0 - Urinary tract infection, site not specified Rony Degroot Feb 01, 2017 18:58 Portillo Barton MD Feb 01, 2017 19:07
[2017-02-01] MEDS: SODIUM CHLOR 0.9% 1000 ML INJ 1,000 ML IV SCH (19:00)
[2017-02-01] MEDS: SODIUM CHLORIDE 0.9% FLUSH 10 ML FLUSH IV FLUSH SCH (19:50)
[2017-02-01 20:00] VITALS: BP 141/100; PULSE 117; RESP 19; TEMP 97.7; O2SAT 94
[2017-02-01] MEDS: LEVOFLOXACIN 750 MG PREMIX INJ 150 ML IV SCH (20:47)
[2017-02-01 21:00] VITALS: O2SAT 94
[2017-02-01] MEDS: RESP: ALBUTEROL 2.5 MG/IPRATROPIUM 0.5 MG NEB (SCH) INH (21:02)
[2017-02-01] MEDS: metroNIDAZOLE 500 MG INJ 100 ML IV SCH (22:01)
[2017-02-02] VITALS (7 sets, daily range): BP systolic 84–139; BP diastolic 51–95; PULSE 92–136; RESP 14–20; TEMP 97–99.1; O2SAT 91–96
[2017-02-02] MEDS: metroNIDAZOLE 500 MG INJ 100 ML IV SCH ×2 (05:35→13:00)
[2017-02-02] MEDS: SODIUM CHLOR 0.9% 1000 ML INJ 1,000 ML IV SCH ×2 (05:35→16:16)
[2017-02-02 06:17] LABS: AUTOMATED NEUTROPHIL # 8.9 TH/MM3 (1.8-7.7); BASOPHIL % 0.1 % (0.0-2.0); EOSINOPHIL % 0.2 % (0.0-4.0); LYMPH % 5.9 % (9.0-44.0); LYMPHOCYTE # 0.6 TH/MM3 (1.0-4.8); MEAN CELL VOLUME 90.4 FL (80.0-100.0); MEAN CORPUSCULAR HEMOGLOBIN 30.7 PG (27.0-34.0); MONO % 10.8 % (0.0-8.0); PLATELET COUNT 176 TH/MM3 (150-450); RED BLOOD COUNT 3.87 MIL/MM3 (4.00-5.30); RED CELL DISTRIBUTION WIDTH 12.9 % (11.6-17.2); WHITE BLOOD COUNT 10.6 TH/MM3 (4.0-11.0)
[2017-02-02 06:24] LABS: POTASSIUM 4.1 MEQ/L (3.5-5.1)
[2017-02-02 06:57] LABS: HEMO FLAGS AUTO DIFF
[2017-02-02] MEDS: RESP: ALBUTEROL 2.5 MG/IPRATROPIUM 0.5 MG NEB (SCH) INH ×3 (07:34→20:01)
[2017-02-02 08:09] LABS: PLATELET ESTIMATE SMEAR NORMAL (NORMAL); PLATELET MORPHOLOGY NORMAL (NORMAL); SCAN/DIFF AUTO DIFF CONFIRMED
[2017-02-02] MEDS: SODIUM CHLORIDE 0.9% FLUSH 10 ML FLUSH IV FLUSH SCH ×2 (09:00→20:01)
[2017-02-02] MEDS ORDERED: OLANZapine IM 10 MG VIAL IM ONE (14:00)
--- NOTE | 2017-02-02 14:15 | HHI.PR ---
Subjective Remarks RN reports no deteriorations since last night. Daughter says that ativan that is ordered prior imaging would actually make pt more delirious and hyper as oppose to still. Roberta reports pt still has unchanged cough. Pt not verbally comprehensible. Objective Vital Signs Date Time Temp Pulse Resp B/P (MAP) Pulse Ox O2 Delivery O2 Flow Rate FiO2 02/02/17 12:00 99.1 101 14 109/67 (81) 91 02/02/17 08:00 98.5 136 20 135/62 (86) 93 02/02/17 07:35 94 Nasal Cannula 2.00 02/02/17 05:41 Nasal Cannula 2.00 02/02/17 00:00 97.6 100 18 139/95 (110) 95 02/01/17 21:00 94 Nasal Cannula 2.00 02/01/17 20:00 94 Nasal Cannula 2.00 02/01/17 20:00 97.7 117 19 141/100 (114) 94 02/01/17 18:08 02/01/17 18:00 Room Air 02/01/17 18:00 98.2 106 24 147/69 (95) 94 02/01/17 16:48 92 02/01/17 16:48 110 20 124/84 (97) 92 02/01/17 14:57 98.0 100 18 100/57 (71) 94 I/O 02/01/17 02/01/17 02/01/17 02/02/17 02/02/17 02/02/17 07:00 15:00 23:00 07:00 15:00 23:00 Intake Total 3250 ml 1582 ml Balance 3250 ml 1582 ml Intake Oral 0 ml IV Total 3250 ml 1582 ml # Voids 3 Result Diagram: 02/02/17 0457 02/02/17 0457 Objective Remarks lying in bed with head flex, still has a wet sounding cough, abdominal labored breathing pale appearing cachetic white female A/P Assessment and Plan SOB - likely 2/2 left lower lobe consolidation - We'll proceed with CT of the chest, pre-medicating patient to keep her still prior to imaging - O2 sats greater than 92% - Duo nebs every 6 hours while awake, and every 2 hours as needed - continue levaquin, switching from flagyl to clindamycin - blood cultures pending Urinary tract infection -Urinalysis looks contaminated -We'll continue to follow urine culture and adjust antibiotics accordingly Advanced dementia -Patient is relatively bedridden, does not do any function of her own, -Patient's family indicates that she does not have a DNR, healthcare surrogate, living will -ST rec pureed diet. -Review of medical records indicate patient has been evaluated by palliative care in the past. At that time the patient lacked capacitated for decision making and will not regain that capacity. Patient was DNR at that time -palliative care consult pending Chronic kidney disease stage III -Continue follow renal function -Avoid nephrotoxins DVT prevention -Sequential compression devices, avoid chemical prophylaxis at this time, patient may need procedure Portillo Barton MD Feb 02, 2017 14:15
--- NOTE | 2017-02-02 14:44 | RADRPT ---
EXAM DATE/TIME: 02/02/2017 14:25 [facility] COMPARISON: CHEST SINGLE AP, April 02, 2016, 19:26. CHEST SINGLE AP, February 01, 2017, 15:56. INDICATIONS : Abnormal chest xray. Cough. RADIATION DOSE: 18.18 CTDIvol (mGy) MEDICAL HISTORY : Alzheimer's Cardiovascular disease Gastroesophageal reflux disease. Renal disease. SURGICAL HISTORY : CABG ENCOUNTER: Initial ACUITY: 2 days PAIN SCALE: Non-responsive LOCATION: Left chest TECHNIQUE: Volumetric scanning of the chest was performed. Using automated exposure control and adjustment of t he mA and/or kV according to patient size, radiation dose was kept as low as reasonably achievable to obtain optimal diagnostic quality images. DICOM format image data is available electronically for r eview and comparison. Follow-up recommendations for detected pulmonary nodules are based at a minimum on nodule size and pa tient risk factors according to Fleischner Society Guidelines. FINDINGS: There are dense consolidative changes in the left lower lobe with air bronchograms present. Minimal parenchymal opacity is noted on the right. Trace pleural effusions are evident. There is no axillary adenopathy There is minimal nonspecific mediastinal adenopathy Moderate coronary calcifications are noted View of bone with resultant degenerative changes Portion of the liver is identified are free of focal defects. CONCLUSION: Consolidative changes left lower lobe suspicious for inflammatory process. The left upper lobe is we ll-aerated. David Gill MD FACR on February 02, 2017 at 14:41 Board Certified Radiologist. This report was verified electronically.
[2017-02-02] MEDS: CLINDAMYCIN INJ 600 MG in SODIUM CHLORIDE 0.9% INJ 50 ML IV SCH (16:16)
--- NOTE | 2017-02-02 16:43 | PD.CONS ---
Consult Service Palliative Care . Consult Requested By Rony BURGOS . Primary Care Physician Unknown . Reason for Consultation a. To assist with evaluation and management of symptoms including: dyspnea, debility, confusion b. To assist medical decision maker(s) with: better understanding of current medical conditions; weighing benefits/burdens of medical treatment options; making medical treatment decisions. . HPI History of Present Illness Patient is an 81-year-old female who was brought to the ED on 02/01/17 for evaluation of a cough. Patient has multiple comorbid conditions including advanced dementia. Patient has had dementia for 6+ years. She had been on hospice but was discharged in August, because she had not had an ongoing decline. She lives with her daughter and is completely dependent for all care. Recent fevers reported. Additional diagnostic data: * Vital signs: Pulse 100, respirations 18, BP 139/95, oxygen saturation 95% on room air, oral temperature 97.6 * WBC: 7.4, hemoglobin 14.1, hematocrit 42.0, platelets 189, neutrophils 80.8% * Sodium: 138, potassium 4.3, chloride 104, carbon dioxide 27.1, glucose 116, calcium 10.0 * BUN 33, creatinine 0.91, GFR 59 * Lactic acid: 2.1 * Total bilirubin: 0.5, AST 24, ALT 27, alkaline phosphatase 90 * Total protein 7.8, albumin 3.4 * Urinalysis with leukocyte esterase, urine RBC, urine WBC and hyaline casts * Blood culture pending * Urine culture pending * Nasal aspirate pending Lactic acid elevated at 2.1. Urinalysis suspicious for UTI. Chest x-ray showed significant density in the left hemothorax. This could be an effusion along with pneumonia. Patient received antibiotics per sepsis protocol; she was subsequently admitted for further evaluation/medical management. Blood cultures and urine cultures remains negative to date. CT of the chest on 02/02/2017 showing consolidative changes in the left lower lobe suspicious for inflammatory process. Palliative Care was consulted to assist with symptom management and to discuss with the family the benefits and burdens of her current illnesses and the options regarding future care. . Function/Cognitive Trajectory Patient was diagnosed with dementia 6+ years ago. Patient had been on hospice but was discharged in August, because she had not had an ongoing decline. At that time (08/2015) the patient was nonambulatory, but occasionally spoke in complete sentences. She was incontinent of urine and required some assistance with ADLs. Current FAST score of 7D. Patient is now is now bedbound, incontinent of bowel and bladder, completely dependent for all ADLs and needs to be fed. Speech is gibberish, and the patient is unable to make her needs known. . Review of Systems ROS Limitations: Clinical Condition, Altered Mental Status, Speech Impaired, Poor Historian Past Family Social History Coded Allergies: memantine (Unverified Allergy, Severe, Confusion, 11/04/16) lovastatin (Unverified Allergy, Intermediate, unknown per family, 11/04/16) risperidone (Unverified Allergy, Intermediate, Confusion, 11/04/16) solifenacin (Unverified Allergy, Intermediate, Confusion, 11/04/16) nitrofurantoin (Unverified Allergy, Unknown, 11/04/16) penicillin G (Unverified Allergy, Unknown, UNKNOWN REACTION, 11/04/16) *MDRO Multi-Drug Resistant Organism (Verified Adverse Reaction, Unknown, ) KPC+Klebsiella Pneu (urine-12/27/15) Past Medical History * CKD * Alzheimer's dementia, > 6 years * Recurrent UTI * Seizures, intermittent since May 2015 * 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 Past Surgical History * CABG January 2011 * Multiple eye surgeries, retina surgery * Carpal tunnel * Left hip * Cystocele repair . Reported Medications Allergy Relief (Loratadine) 10 Mg Tab 10 Mg PO DAILY Aspirin 81 Mg Chew 81 Mg CHEW DAILY Seroquel (Quetiapine Fumarate) 200 Mg Tab 200 Mg PO BID Levetiracetam 500 Mg Tab 500 Mg PO BID Metoprolol Tartrate 25 Mg Tab 25 Mg PO DAILY . Current Medications Medications (Trade) Dose Ordered Sig/Mario Alberto Route Start Time Stop Time Status Last Admin Sodium Chloride 1,000 ml @ 100 mls/hr Q10H IV 02/01/17 19:00 02/02/17 05:35 (NS Flush) 2 ml UNSCH PRN IV FLUSH 02/01/17 18:45 (NS Flush) 2 ml BID IV FLUSH 02/01/17 21:00 Levofloxacin/ Dextrose 150 ml @ 100 mls/hr Q24H IV 02/01/17 20:00 02/01/17 20:47 (Tylenol) 650 mg Q4H PRN PO 02/01/17 18:45 02/02/17 14:00 (Zofran Inj) 4 mg Q6H PRN IV PUSH 02/01/17 18:45 (Duoneb Neb) 1 ampule Q6HR WHILE AWAKE NEB INH 02/01/17 20:00 02/02/17 13:30 (Duoneb Neb) 1 ampule Q2HR NEB PRN INH 02/01/17 18:45 Clindamycin Phosphate 600 mg/ Sodium Chloride 54 ml @ 100 mls/hr Q8H IV 02/02/17 15:00 . Family History The patient's mother and maternal grandmother of dementia. Her father of "old age and osteoporosis. . Substance Use Tobacco: None known Alcohol: None known Prescription med abuse: None known Illicits: None known . Psychosocial History The patient was born and raised in [place], lived in [place] for several years, and moved to [place] several years ago. For the last 6 years, she has lived with her daughter, Doroteo. She was twice, from her first , and from her second. The she has 3 daughters, and lives with her daughter Doroteo locally. 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 . Spiritual/Cultural Factors Patient has a Bahai background, but she has not been affiliated with any particular yazdanism clergy in recent years. . Living Will: Copy in medical record Health Care Surrogate: Copy in medical record Durable Power of Slot Operations Manager: Copy in medical record Date completed: 12/07/2008 . Health Care Surrogate(s): Her daughter Doroteo and daughter Corin are designated primary and secondary healthcare surrogate's respectively. . Documented care wishes: Healthcare power of attorney recruiter and healthcare surrogate forms are accessible in patients EMR . Today's verbally stated goals: The patient lacks capacity for decision-making and will not regain that capacity. . Family/friends goals: Patient's daughter expresses aggressive goals. She states she "does not feel the patient is ready for hospice at this time". . Ethical and Legal Issues No known ethical or legal issues impacting care at this time. . Physical Exam Vital Signs Date Time Temp Pulse Resp B/P (MAP) Pulse Ox O2 Delivery O2 Flow Rate FiO2 02/02/17 12:00 99.1 101 14 109/67 (81) 91 02/02/17 08:00 98.5 136 20 135/62 (86) 93 02/02/17 07:35 94 Nasal Cannula 2.00 02/02/17 05:41 Nasal Cannula 2.00 02/02/17 00:00 97.6 100 18 139/95 (110) 95 02/01/17 21:00 94 Nasal Cannula 2.00 02/01/17 20:00 94 Nasal Cannula 2.00 02/01/17 20:00 97.7 117 19 141/100 (114) 94 02/01/17 18:08 02/01/17 18:00 Room Air 02/01/17 18:00 98.2 106 24 147/69 (95) 94 02/01/17 16:48 92 02/01/17 16:48 110 20 124/84 (97) 92 . Allergy Relief (Loratadine) 10 Mg Tab 10 Mg PO DAILY Aspirin 81 Mg Chew 81 Mg CHEW DAILY Seroquel (Quetiapine Fumarate) 200 Mg Tab 200 Mg PO BID Levetiracetam 500 Mg Tab 500 Mg PO BID Metoprolol Tartrate 25 Mg Tab 25 Mg PO DAILY . Exam CONSTITUTIONAL/GENERAL: This is a frail, elderly female patient in no acute distress. TUBES/LINES/DRAINS: PIC x 1, SKIN: No jaundice, rashes, or lesions. Ecchymoses on upper extremities. No wounds seen anteriorly. Skin temperature appropriate. Not diaphoretic. HEAD: Atraumatic. Normocephalic. EYES: No scleral icterus. No injection or drainage. ENT: Neck is constant flexion position. Nose without bleeding or purulent drainage. Throat without visible erythema, exudates, masses, or lesions. NECK: Trachea midline. Supple, nontender. No palpable thyroid enlargement or nodularity. CARDIOVASCULAR: Regular rate and rhythm without murmurs, gallops, or rubs. No JVD. Peripheral pulses symmetric. RESPIRATORY/CHEST: Symmetric, unlabored respirations. Breath sounds diminished bilaterally, L>R. + productive cough GASTROINTESTINAL: Abdomen soft, non-tender, nondistended. No guarding. Bowel sounds present. GENITOURINARY: Without palpable bladder distension. MUSCULOSKELETAL: Extremities without clubbing, cyanosis, or edema. No mottling or clubbing. LYMPHATICS: No palpable cervical or supraclavicular adenopathy. NEUROLOGICAL: Arousable to verbal stimuli. Speech is garbled. Patient is unable to make needs known; does not follow commands. PSYCHIATRIC: Intermittent anxiety and agitation. No apparent hallucinations or other psychotic thought process. . Diagnostic Tests Laboratory Laboratory Tests Test 02/01/17 16:27 02/01/17 16:35 02/01/17 18:32 02/02/17 04:57 White Blood Count 7.4 TH/MM3 (4.0-11.0) 10.6 TH/MM3 (4.0-11.0) Red Blood Count 4.57 MIL/MM3 (4.00-5.30) 3.87 MIL/MM3 (4.00-5.30) Hemoglobin 14.1 GM/DL (11.6-15.3) 11.9 GM/DL (11.6-15.3) Hematocrit 42.0 % (35.0-46.0) 35.0 % (35.0-46.0) Mean Corpuscular Volume 91.7 FL (80.0-100.0) 90.4 FL (80.0-100.0) Mean Corpuscular Hemoglobin 30.7 PG (27.0-34.0) 30.7 PG (27.0-34.0) Mean Corpuscular Hemoglobin Concent 33.5 % (32.0-36.0) 34.0 % (32.0-36.0) Red Cell Distribution Width 13.4 % (11.6-17.2) 12.9 % (11.6-17.2) Platelet Count 189 TH/MM3 (150-450) 176 TH/MM3 (150-450) Mean Platelet Volume 9.6 FL (7.0-11.0) 9.3 FL (7.0-11.0) Neutrophils (%) (Auto) 80.8 % (16.0-70.0) 83.0 % (16.0-70.0) Lymphocytes (%) (Auto) 9.7 % (9.0-44.0) 5.9 % (9.0-44.0) Monocytes (%) (Auto) 6.2 % (0.0-8.0) 10.8 % (0.0-8.0) Eosinophils (%) (Auto) 3.1 % (0.0-4.0) 0.2 % (0.0-4.0) Basophils (%) (Auto) 0.2 % (0.0-2.0) 0.1 % (0.0-2.0) Neutrophils # (Auto) 6.0 TH/MM3 (1.8-7.7) 8.9 TH/MM3 (1.8-7.7) Lymphocytes # (Auto) 0.7 TH/MM3 (1.0-4.8) 0.6 TH/MM3 (1.0-4.8) Monocytes # (Auto) 0.5 TH/MM3 (0-0.9) 1.1 TH/MM3 (0-0.9) Eosinophils # (Auto) 0.2 TH/MM3 (0-0.4) 0.0 TH/MM3 (0-0.4) Basophils # (Auto) 0.0 TH/MM3 (0-0.2) 0.0 TH/MM3 (0-0.2) CBC Comment DIFF FINAL AUTO DIFF Differential Comment AUTO DIFF CONFIRMED Blood Urea Nitrogen 33 MG/DL (7-18) 24 MG/DL (7-18) Creatinine 0.91 MG/DL (0.50-1.00) 0.75 MG/DL (0.50-1.00) Random Glucose 116 MG/DL (74-106) 123 MG/DL (74-106) Total Protein 7.8 GM/DL (6.4-8.2) Albumin 3.4 GM/DL (3.4-5.0) Calcium Level 10.0 MG/DL (8.5-10.1) 8.7 MG/DL (8.5-10.1) Alkaline Phosphatase 90 U/L (45-117) Aspartate Amino Transf (AST/SGOT) 24 U/L (15-37) Alanine Aminotransferase (ALT/SGPT) 27 U/L (10-53) Total Bilirubin 0.5 MG/DL (0.2-1.0) Sodium Level 138 MEQ/L (136-145) 142 MEQ/L (136-145) Potassium Level 4.3 MEQ/L (3.5-5.1) 4.1 MEQ/L (3.5-5.1) Chloride Level 104 MEQ/L (98-107) 113 MEQ/L (98-107) Carbon Dioxide Level 27.1 MEQ/L (21.0-32.0) 20.0 MEQ/L (21.0-32.0) Anion Gap 7 MEQ/L (5-15) 9 MEQ/L (5-15) Estimat Glomerular Filtration Rate 59 ML/MIN (>89) 74 ML/MIN (>89) Lactic Acid Level 2.1 mmol/L (0.4-2.0) 3.1 mmol/L (0.4-2.0) Urine Collection Type CATH Urine Color YELLOW (YELLW/STRAW) Urine Turbidity SLIGHT (CLEAR) Urine pH 5.5 (5.0-8.5) Urine Specific Gypsy 1.026 (1.002-1.035) Urine Protein NEG mg/dL (NEG-TRACE) Urine Glucose (UA) NEG mg/dL (NEG) Urine Ketones NEG mg/dL (NEG) Urine Occult Blood TRACE (NEG) Urine Nitrite NEG (NEG) Urine Bilirubin NEG (NEG) Urine Leukocyte Esterase SMALL (NEG) Urine RBC 4-9 /hpf (0-3) Urine WBC 9-14 /hpf (0-5) Urine Squamous Epithelial Cells 0-5 /hpf (0-5) Urine Hyaline Casts 15-19 /lpf (RARE) Microscopic Urinalysis Comment CULTURE INDICATED Urine Collection Time 16:35 Platelet Estimate NORMAL (NORMAL) Platelet Morphology Comment NORMAL (NORMAL) Test 02/02/17 14:20 Lactic Acid Level 1.3 mmol/L (0.4-2.0) . Result Diagram: 02/02/17 0457 02/02/17 0457 Microbiology Microbiology Date/Time Source Procedure Growth Status 02/01/17 16:27 Blood Peripheral Aerobic Blood Culture - Preliminary NO GROWTH IN 1 DAY Resulted 02/01/17 16:27 Blood Peripheral Anaerobic Blood Culture - Preliminary NO GROWTH IN 1 DAY Resulted 02/01/17 16:22 Blood Peripheral Aerobic Blood Culture - Preliminary NO GROWTH IN 1 DAY Resulted 02/01/17 16:22 Blood Peripheral Anaerobic Blood Culture - Preliminary NO GROWTH IN 1 DAY Resulted 02/01/17 18:50 Nasal Aspirate Influenza Types A,B Antigen (SHARIF) Pending Received 02/01/17 16:35 Urine Catheterized Urine Urine Culture - Preliminary NO GROWTH IN 24 HOURS. Resulted Imaging Last [address] 02/02/17 0000 Signed Impressions: Service Date/Time: Thursday, February 02, 2017 14:25 - CONCLUSION: Consolidative changes left lower lobe suspicious for inflammatory process. The left upper lobe is well-aerated. David Gill MD FACR Chest X-Ray 02/01/17 1545 Signed Impressions: Service Date/Time: Wednesday, February 01, 2017 15:56 - CONCLUSION: 1. Consolidation and volume loss in the left hemithorax with possible associated effusion. 2. Right lung remains clear. Robby Kenny MD . Patient/Family Conference Present at Family Conference: Met with patient's daughter at bedside. . Family Conference Location: Bedside Issues Discussed: * Palliative care role, purpose, approach * Additional medical, psychosocial, and spiritual history * Patients general health, functional status, and cognitive changes in the months leading up to the current hospitalization * Patient/family understanding of the current medical problems * Patient/family understanding of prognosis * Patients goals of care as best understood from advance directives and/or conversations and/or values * Current medical treatment options and benefits/burdens of those options * Likely scenarios comparing ongoing aggressive care with a transition to comfort measures only * Questions answered to the best of my ability * Palliative care contact information provided . Assessment and Plan Disease Oriented Problem List: (1) Chronic kidney disease (2) UTI (urinary tract infection) (3) Dementia (4) Abnormal chest x-ray (5) Coronary artery disease (6) DVT prophylaxis (7) blindness since 1967 (8) subdural hematoma/hygroma September 2014 (9) depression (10) anxiety (11) seizures, intermittent since May 2015 (12) glaucoma Symptom Scale: (1) Dyspnea 0-10 Scale: Unable to quantify (2) Debility 0-10 Scale: Unable to quantify (3) Confusion 0-10 Scale: Unable to quantify Pertinent Non-Medical Issues Psychosocial:The patient was born and raised in [place], lived in [place] for several years, and moved to [place] several years ago. For the last 6 years, she has lived with her daughter, Doroteo. She was twice, from her first , and from her second. The she has 3 daughters, and lives with her daughter Doroteo locally. 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 Spiritual: Bahai aida Legal: The patient lacks capacity for decision-making and will not regain that capacity. Her daughter Doroteo and daughter Corin are designated primary and secondary healthcare surrogate's respectively. Ethical issues impacting care: No known ethical issues impacting care at this time . Important Contacts Daughter: Doroteo Stauffer Home: Prognosis Patient is currently admitted with suspected UTI and pneumonia.The patient has advanced dementia with a fast score of 70. She is dependent for all ADLS and incontinent of bowel and bladder. Speech is gibberish. Given patient's advanced dementia and ongoing decline, she is appropriate for hospice services when the medical treatment goals become comfort oriented. . Code Status: Full Code Plan * FULL CODE * Discussed the process of cardiopulmonary resuscitation at length with the patient's daughter. Given the patient's advanced age and multiple comorbid conditions, the burdens of cardio pulmonary resuscitation may outweigh the benefits. Additionally, the patient was likely have difficulty weaning from mechanical ventilation given her advanced dementia. Patient's daughter would like to discuss CODE STATUS with her sister before making any changes. Patient will remain in FULL CODE at this time * Decision-making: The patient lacks capacity for decision-making and will not regain that capacity. Her daughter Doroteo and daughter Corin are designated primary and secondary healthcare surrogate's respectively. * AGGRESSIVE GOALS * The patient has advanced dementia. FAST 7D. She is dependent for all ADLS. Patient is currently admitted with suspected UTI and pneumonia. She is appropriate for hospice at this time if the medical treatment goals are hospice appropriate. * Symptom management-dyspnea: Patient has productive, croupy cough. Chest x- ray showed consolidation and volume loss in the left hemothorax with possible associated effusion, right lung remains clear. CT chest revealed consolidative changes in the left lower lobe suspicious for inflammatory process. Patient is receiving IV antibiotics in addition to scheduled and PRN nebulizer treatments * Symptom management-debility: She is dependent for all ADLs; incontinent of bowel and bladder; unable to feed herself. * Symptom management-confusion: Patient has advanced dementia that was first diagnosed 6+ years ago. Current fast of 7d. * Palliative care contact information provided to the patient's daughter * Palliative care will continue to follow this patient throughout her hospitalization to establish trust, assist with symptom management and clarification of medical treatment goals. Thank you for the opportunity to participate in the care of Ms. Martínez. Jenae Christine Feb 02, 2017 16:43
[2017-02-02] MEDS: LEVOFLOXACIN 750 MG PREMIX INJ 150 ML IV SCH (20:01)
[2017-02-02] MEDS ORDERED: SODIUM CHLORID 0.9% 500 ML INJ 500 ML IV ONE (22:00)
[2017-02-03] VITALS (8 sets, daily range): BP systolic 97–109; BP diastolic 52–56; PULSE 79–88; RESP 18–29; TEMP 96.4–97.2; O2SAT 89–98
[2017-02-03] MEDS: CLINDAMYCIN INJ 600 MG in SODIUM CHLORIDE 0.9% INJ 50 ML IV SCH ×4 (00:08→23:30)
[2017-02-03] MEDS: SODIUM CHLOR 0.9% 1000 ML INJ 1,000 ML IV SCH ×2 (06:23→11:21)
[2017-02-03] MEDS: RESP: ALBUTEROL 2.5 MG/IPRATROPIUM 0.5 MG NEB (SCH) INH ×3 (07:30→20:03)
[2017-02-03] MEDS: SODIUM CHLORIDE 0.9% FLUSH 10 ML FLUSH IV FLUSH SCH ×2 (09:30→21:24)
[2017-02-03 11:09] LABS: AUTOMATED NEUTROPHIL # 4.8 TH/MM3 (1.8-7.7); BASOPHIL % 0.4 % (0.0-2.0); EOSINOPHIL # 0.1 TH/MM3 (0-0.4); EOSINOPHIL % 1.2 % (0.0-4.0); HEMATOCRIT 33.5 % (35.0-46.0); HEMO FLAGS DIFF FINAL; LYMPHOCYTE # 0.6 TH/MM3 (1.0-4.8); MEAN CORPUSCULAR HEMOGLOBIN 29.7 PG (27.0-34.0); MEAN CORPUSCULAR HGB CONC 32.3 % (32.0-36.0); MONO % 7.2 % (0.0-8.0); NEUT % 80.2 % (16.0-70.0); PLATELET COUNT 166 TH/MM3 (150-450); RED BLOOD COUNT 3.64 MIL/MM3 (4.00-5.30); RED CELL DISTRIBUTION WIDTH 13.1 % (11.6-17.2); WHITE BLOOD COUNT 5.9 TH/MM3 (4.0-11.0)
[2017-02-03 11:17] LABS: POTASSIUM 3.9 MEQ/L (3.5-5.1)
[2017-02-03 11:20] LABS: BICARBONATE 22.4 MEQ/L (21.0-32.0)
--- NOTE | 2017-02-03 18:09 | HHI.PR ---
Subjective Remarks D/w patient's daughter. Patient moved to intermediate care for closer monitoring as she is not requiring 4 L oxygen. Patient herself is extremely hard of hearing and only can hear somewhat out of the left ear. Patient denies any shortness of breath or pain. Patient still has quite a productive sounding cough but is not producing sputum. Patient does require saw for strains her she will pull out her IVs. Objective Vitals Vital Signs Date Time Temp Pulse Resp B/P (MAP) Pulse Ox O2 Delivery O2 Flow Rate FiO2 02/03/17 12:00 96.4 79 20 101/54 (70) 90 02/03/17 09:00 91 Nasal Cannula 4.00 02/03/17 08:00 96.5 81 18 97/56 (70) 91 02/03/17 07:30 93 Nasal Cannula 4.00 02/03/17 00:26 98 Nasal Cannula 4.00 02/03/17 00:00 96.8 88 20 99/52 (68) 89 02/02/17 20:01 94 Nasal Cannula 2.00 02/02/17 20:00 92 Nasal Cannula 2.00 28 02/02/17 20:00 97.4 92 20 84/51 (62) 92 I/O 02/02/17 02/02/17 02/02/17 02/03/17 02/03/17 02/03/17 07:00 15:00 23:00 07:00 15:00 23:00 Intake Total 1582 ml 1110 ml 1600 ml 740 ml Balance 1582 ml 1110 ml 1600 ml 740 ml Intake Oral 60 ml 0 ml IV Total 1582 ml 1050 ml 1600 ml 740 ml # Voids 2 2 1 # Bowel Movements 1 0 1 Result Diagram: 02/03/17 1040 02/03/17 1040 Objective Remarks GENERAL: Elderly female with dementia laying in bed in no apparent distress. SKIN: Warm and dry. HEAD: Normocephalic. EYES: No scleral icterus. No injection or drainage. NECK: Supple, trachea midline. No JVD or lymphadenopathy. CARDIOVASCULAR: Regular rate and rhythm without murmurs, gallops, or rubs. RESPIRATORY: Breath sounds equal and clear to auscultation anteriorly bilaterally. No accessory muscle use on 4 L nasal cannula. GASTROINTESTINAL: Abdomen soft, non-tender, nondistended. EXTREMITIES: Trace pedal edema. NEUROLOGICAL: Awake, alert, and oriented x 3. Non-focal. A/P Problem List: (1) blindness since 1967 Status: Acute (2) Dementia ICD Code: F03.90 - Dementia Status: Chronic (3) Pneumonia ICD Code: J18.9 - Pneumonia, unspecified organism Status: Acute (4) Fever ICD Code: R50.9 - Fever, unspecified Status: Acute (5) Acute respiratory failure with hypoxemia ICD Code: J96.01 - Acute respiratory failure with hypoxia Assessment and Plan -Left lower lobe consolidation community-acquired pneumonia, acute hypoxemic respiratory failure requiring 4 L nasal cannula oxygen - - Duo nebs every 6 hours while awake, and every 2 hours as needed - continue levaquin, clindamycin - patient has penicillin allergy daughters not sure what the reaction was - blood cultures negative at 48 hours -Sputum culture pending -Add Acapella Abnormal UA however cultures negative at 48 hours. Advanced dementia -Patient is relatively bedridden, does not do any function of her own, -ST rec pureed diet. -Review of medical records indicate patient has been evaluated by palliative care in the past. At that time the patient lacked capacitated for decision making and will not regain that capacity. Patient was DNR at that time -palliative care following currently patient full code Chronic kidney disease stage III -Continue follow renal function -Avoid nephrotoxins DVT prevention -Sequential compression devices Guarded prognosis Discussed with daughter at bedside Tasha Rodriguez MD Feb 03, 2017 18:09
[2017-02-03] MEDS: LEVOFLOXACIN 750 MG PREMIX INJ 150 ML IV SCH (21:23)
[2017-02-04] VITALS (8 sets, daily range): BP systolic 107–141; BP diastolic 56–96; PULSE 78–94; RESP 18–24; TEMP 97.2–98.9; O2SAT 92–100
[2017-02-04] MEDS: CLINDAMYCIN INJ 600 MG in SODIUM CHLORIDE 0.9% INJ 50 ML IV SCH ×3 (06:07→23:16)
[2017-02-04] MEDS: SODIUM CHLOR 0.9% 1000 ML INJ 1,000 ML IV SCH ×2 (07:00→16:26)
[2017-02-04] MEDS: RESP: ALBUTEROL 2.5 MG/IPRATROPIUM 0.5 MG NEB (SCH) INH ×3 (07:23→20:14)
[2017-02-04] MEDS: SODIUM CHLORIDE 0.9% FLUSH 10 ML FLUSH IV FLUSH SCH ×2 (09:00→19:46)
--- NOTE | 2017-02-04 10:29 | HHI.PR ---
Subjective Remarks Patient requests applesauce, denies pain or dyspnea. Per RT she cannot participate with accapella. Objective Vitals Vital Signs Date Time Temp Pulse Resp B/P (MAP) Pulse Ox O2 Delivery O2 Flow Rate FiO2 02/04/17 07:23 95 Nasal Cannula 3.00 02/04/17 04:00 97.2 78 23 107/56 (73) 92 02/04/17 00:00 97.5 94 24 124/96 (105) 100 02/03/17 20:03 98 Nasal Cannula 4.00 02/03/17 20:00 92 Nasal Cannula 3.00 02/03/17 20:00 96.6 87 27 109/56 (73) 92 02/03/17 16:00 97.2 88 29 89 02/03/17 12:00 96.4 79 20 101/54 (70) 90 I/O 02/03/17 02/03/17 02/03/17 02/04/17 02/04/17 02/04/17 07:00 15:00 23:00 07:00 15:00 23:00 Intake Total 1600 ml 740 ml 240 ml 318 ml Balance 1600 ml 740 ml 240 ml 318 ml Intake Oral 0 ml 240 ml 60 ml IV Total 1600 ml 740 ml 258 ml # Voids 2 1 3 # Bowel Movements 0 1 1 Result Diagram: 02/03/17 1040 02/03/17 1040 Objective Remarks GENERAL: Elderly female with dementia laying in bed in no apparent distress. SKIN: Warm and dry. HEAD: Normocephalic. EYES: No scleral icterus. No injection or drainage. NECK: Supple, trachea midline. No JVD or lymphadenopathy. CARDIOVASCULAR: Regular rate and rhythm without murmurs, gallops, or rubs. RESPIRATORY: Breath sounds equal and clear to auscultation anteriorly bilaterally. No accessory muscle use on 4 L nasal cannula. GASTROINTESTINAL: Abdomen soft, non-tender, nondistended. EXTREMITIES: Trace pedal edema. NEUROLOGICAL: Awake, alert, and oriented x 3. Non-focal. A/P Problem List: (1) blindness since 1967 Status: Acute (2) Dementia ICD Code: F03.90 - Dementia Status: Chronic (3) Pneumonia ICD Code: J18.9 - Pneumonia, unspecified organism Status: Acute (4) Fever ICD Code: R50.9 - Fever, unspecified Status: Acute (5) Acute respiratory failure with hypoxemia ICD Code: J96.01 - Acute respiratory failure with hypoxia Assessment and Plan -Left lower lobe consolidation community-acquired pneumonia, acute hypoxemic respiratory failure requiring 4 L nasal cannula oxygen - - Duo nebs every 6 hours while awake, and every 2 hours as needed - continue levaquin, clindamycin - patient has penicillin allergy daughters not sure what the reaction was - blood cultures negative at 48 hours -Sputum culture pending -patient cannot participate with Acapella Abnormal UA however cultures negative at 48 hours. Advanced dementia -Patient is relatively bedridden, does not do any function of her own, -ST rec pureed diet. -Review of medical records indicate patient has been evaluated by palliative care in the past. At that time the patient lacked capacitated for decision making and will not regain that capacity. Patient was DNR at that time -palliative care following currently patient full code Chronic kidney disease stage III -Continue follow renal function -Avoid nephrotoxins DVT prevention -Sequential compression devices Guarded prognosis Tasha Rodriguez MD Feb 04, 2017 10:29
--- NOTE | 2017-02-04 16:19 | HHI.HCPN ---
Reason for visit a. To assist with evaluation and management of symptoms including: dyspnea, debility, confusion b. To assist medical decision maker(s) with: better understanding of current medical conditions; weighing benefits/burdens of medical treatment options; making medical treatment decisions. . Subjective/Interval History 81-year-old female with severe dementia admitted with sepsis, pneumonia, UTI. She is blind and hearing impaired. She lives with her daughter Doroteo is supported by her daughter Corin. She has 1 more daughter in [place], [place], who is not involved in the mother's care. Speech therapy evaluation done 02/03 indicated severe pharyngeal phase dysphagia with clinical symptoms of aspiration observed on pured consistencies. Recommend diet is nothing by mouth. For this therapy note patient was fed 3 teaspoons of chocolate pudding and demonstrated a wet cough response after each teaspoon. The family is resistant to believe that she could possibly be aspirating but states at this time they wish no artificial feeding method initiated. They are considering the possibility of a modified barium swallow to clarify whether aspiration is present. Interim history: * Vital signs BP 131/79, pulse 80, RR 24, saturation 99% on 3 L nasal cannula, afebrile. No additional clinical studies done today. . Family/friend interactions Spoke with daughter Corin Son, at bedside and discussed the swallow evaluation findings. She became very irate and began yelling in the room that her mother was not aspirating and states that she fed her breakfast. She also reports that the LITIGATION EXAMINER fed her pured food at the previous evening's dinner. She stated that her mother would not want artificial feeding and that they did not want any feeding tubes, however did not believe that they were necessary. She denies any possibility that the patient aspirated and states that her pneumonia is from sick children in the home. The concept of the barium swallow was introduced to verify whether aspiration was occurring and she called her sister Doroteo, who is the power of attorney lawyer, who states she does not want to make that decision until she has had time to talk with someone [id number]. The sister Corin states that she herself has had a barium swallow in the past and will discuss it with her sister when she comes to the hospital. Palliative care contact information was provided for any further questions. Advance Directives Living Will: Copy in medical record Health Care Surrogate: Copy in medical record Durable Power of Electrical Tester Battery: Copy in medical record Advance Directive Specifics Date completed: 12/07/2008 . Health Care Surrogate(s): Her daughter Doroteo and daughter Corin are designated primary and secondary healthcare surrogate's respectively. . Documented care wishes: Healthcare power of attorney lawyer and healthcare surrogate forms are accessible in patients EMR . Objective Vital Signs Date Time Temp Pulse Resp B/P (MAP) Pulse Ox O2 Delivery O2 Flow Rate FiO2 02/04/17 12:00 98.8 80 24 131/79 (96) 02/04/17 08:00 98.4 86 18 99 02/04/17 07:23 95 Nasal Cannula 3.00 02/04/17 07:00 Nasal Cannula 2.00 02/04/17 04:00 97.2 78 23 107/56 (73) 92 02/04/17 00:00 97.5 94 24 124/96 (105) 100 02/03/17 20:03 98 Nasal Cannula 4.00 02/03/17 20:00 92 Nasal Cannula 3.00 02/03/17 20:00 96.6 87 27 109/56 (73) 92 02/03/17 16:00 97.2 88 29 89 Intake & Output 02/04/17 02/04/17 07:00 19:00 Intake Total 318 ml Balance 318 ml Intake Oral 60 ml IV Total 258 ml # Voids 3 1 # Bowel Movements 1 Physical Exam CONSTITUTIONAL/GENERAL: This is a frail, elderly female patient in no acute distress. TUBES/LINES/DRAINS: PIC x 1, SKIN: No jaundice, rashes, or lesions. No wounds seen anteriorly. Skin temperature appropriate. Not diaphoretic. HEAD: Atraumatic. Normocephalic. EYES: Right eye closed, left eye half open, patient blind. ENT: Neck is constant flexion position. No current epistaxis. Throat without visible erythema, exudates, masses, or lesions. CARDIOVASCULAR: Regular rate and rhythm without murmurs, gallops, or rubs. No JVD. Peripheral pulses symmetric. RESPIRATORY/CHEST: Symmetric, unlabored respirations. Frequent rhonchorous deep cough, breath sounds diminished bilaterally, more diminished left base. GASTROINTESTINAL: Abdomen soft, non-tender, nondistended. No guarding. Bowel sounds present. GENITOURINARY: Without palpable bladder distension. MUSCULOSKELETAL: Extremities without clubbing, cyanosis, or edema. No mottling or clubbing. NEUROLOGICAL: Arousable to verbal stimuli. Speech is garbled. Patient is unable to make needs known; does not follow commands. PSYCHIATRIC: Intermittent anxiety and agitation. No apparent hallucinations or other psychotic thought process. . Diagnostic Tests Laboratory Laboratory Tests Test 02/01/17 16:27 02/01/17 16:35 02/01/17 18:32 02/02/17 04:57 White Blood Count 7.4 TH/MM3 (4.0-11.0) 10.6 TH/MM3 (4.0-11.0) Red Blood Count 4.57 MIL/MM3 (4.00-5.30) 3.87 MIL/MM3 (4.00-5.30) Hemoglobin 14.1 GM/DL (11.6-15.3) 11.9 GM/DL (11.6-15.3) Hematocrit 42.0 % (35.0-46.0) 35.0 % (35.0-46.0) Mean Corpuscular Volume 91.7 FL (80.0-100.0) 90.4 FL (80.0-100.0) Mean Corpuscular Hemoglobin 30.7 PG (27.0-34.0) 30.7 PG (27.0-34.0) Mean Corpuscular Hemoglobin Concent 33.5 % (32.0-36.0) 34.0 % (32.0-36.0) Red Cell Distribution Width 13.4 % (11.6-17.2) 12.9 % (11.6-17.2) Platelet Count 189 TH/MM3 (150-450) 176 TH/MM3 (150-450) Mean Platelet Volume 9.6 FL (7.0-11.0) 9.3 FL (7.0-11.0) Neutrophils (%) (Auto) 80.8 % (16.0-70.0) 83.0 % (16.0-70.0) Lymphocytes (%) (Auto) 9.7 % (9.0-44.0) 5.9 % (9.0-44.0) Monocytes (%) (Auto) 6.2 % (0.0-8.0) 10.8 % (0.0-8.0) Eosinophils (%) (Auto) 3.1 % (0.0-4.0) 0.2 % (0.0-4.0) Basophils (%) (Auto) 0.2 % (0.0-2.0) 0.1 % (0.0-2.0) Neutrophils # (Auto) 6.0 TH/MM3 (1.8-7.7) 8.9 TH/MM3 (1.8-7.7) Lymphocytes # (Auto) 0.7 TH/MM3 (1.0-4.8) 0.6 TH/MM3 (1.0-4.8) Monocytes # (Auto) 0.5 TH/MM3 (0-0.9) 1.1 TH/MM3 (0-0.9) Eosinophils # (Auto) 0.2 TH/MM3 (0-0.4) 0.0 TH/MM3 (0-0.4) Basophils # (Auto) 0.0 TH/MM3 (0-0.2) 0.0 TH/MM3 (0-0.2) CBC Comment DIFF FINAL AUTO DIFF Differential Comment AUTO DIFF CONFIRMED Blood Urea Nitrogen 33 MG/DL (7-18) 24 MG/DL (7-18) Creatinine 0.91 MG/DL (0.50-1.00) 0.75 MG/DL (0.50-1.00) Random Glucose 116 MG/DL (74-106) 123 MG/DL (74-106) Total Protein 7.8 GM/DL (6.4-8.2) Albumin 3.4 GM/DL (3.4-5.0) Calcium Level 10.0 MG/DL (8.5-10.1) 8.7 MG/DL (8.5-10.1) Alkaline Phosphatase 90 U/L (45-117) Aspartate Amino Transf (AST/SGOT) 24 U/L (15-37) Alanine Aminotransferase (ALT/SGPT) 27 U/L (10-53) Total Bilirubin 0.5 MG/DL (0.2-1.0) Sodium Level 138 MEQ/L (136-145) 142 MEQ/L (136-145) Potassium Level 4.3 MEQ/L (3.5-5.1) 4.1 MEQ/L (3.5-5.1) Chloride Level 104 MEQ/L (98-107) 113 MEQ/L (98-107) Carbon Dioxide Level 27.1 MEQ/L (21.0-32.0) 20.0 MEQ/L (21.0-32.0) Anion Gap 7 MEQ/L (5-15) 9 MEQ/L (5-15) Estimat Glomerular Filtration Rate 59 ML/MIN (>89) 74 ML/MIN (>89) Lactic Acid Level 2.1 mmol/L (0.4-2.0) 3.1 mmol/L (0.4-2.0) Urine Collection Type CATH Urine Color YELLOW (YELLW/STRAW) Urine Turbidity SLIGHT (CLEAR) Urine pH 5.5 (5.0-8.5) Urine Specific [place] 1.026 (1.002-1.035) Urine Protein NEG mg/dL (NEG-TRACE) Urine Glucose (UA) NEG mg/dL (NEG) Urine Ketones NEG mg/dL (NEG) Urine Occult Blood TRACE (NEG) Urine Nitrite NEG (NEG) Urine Bilirubin NEG (NEG) Urine Leukocyte Esterase SMALL (NEG) Urine RBC 4-9 /hpf (0-3) Urine WBC 9-14 /hpf (0-5) Urine Squamous Epithelial Cells 0-5 /hpf (0-5) Urine Hyaline Casts 15-19 /lpf (RARE) Microscopic Urinalysis Comment CULTURE INDICATED Urine Collection Time 16:35 Platelet Estimate NORMAL (NORMAL) Platelet Morphology Comment NORMAL (NORMAL) Test 02/02/17 14:20 02/03/17 10:40 Lactic Acid Level 1.3 mmol/L (0.4-2.0) White Blood Count 5.9 TH/MM3 (4.0-11.0) Red Blood Count 3.64 MIL/MM3 (4.00-5.30) Hemoglobin 10.8 GM/DL (11.6-15.3) Hematocrit 33.5 % (35.0-46.0) Mean Corpuscular Volume 92.0 FL (80.0-100.0) Mean Corpuscular Hemoglobin 29.7 PG (27.0-34.0) Mean Corpuscular Hemoglobin Concent 32.3 % (32.0-36.0) Red Cell Distribution Width 13.1 % (11.6-17.2) Platelet Count 166 TH/MM3 (150-450) Mean Platelet Volume 8.4 FL (7.0-11.0) Neutrophils (%) (Auto) 80.2 % (16.0-70.0) Lymphocytes (%) (Auto) 11.0 % (9.0-44.0) Monocytes (%) (Auto) 7.2 % (0.0-8.0) Eosinophils (%) (Auto) 1.2 % (0.0-4.0) Basophils (%) (Auto) 0.4 % (0.0-2.0) Neutrophils # (Auto) 4.8 TH/MM3 (1.8-7.7) Lymphocytes # (Auto) 0.6 TH/MM3 (1.0-4.8) Monocytes # (Auto) 0.4 TH/MM3 (0-0.9) Eosinophils # (Auto) 0.1 TH/MM3 (0-0.4) Basophils # (Auto) 0.0 TH/MM3 (0-0.2) CBC Comment DIFF FINAL Differential Comment Blood Urea Nitrogen 14 MG/DL (7-18) Creatinine 0.76 MG/DL (0.50-1.00) Random Glucose 103 MG/DL (74-106) Calcium Level 8.2 MG/DL (8.5-10.1) Sodium Level 146 MEQ/L (136-145) Potassium Level 3.9 MEQ/L (3.5-5.1) Chloride Level 116 MEQ/L (98-107) Carbon Dioxide Level 22.4 MEQ/L (21.0-32.0) Anion Gap 8 MEQ/L (5-15) Estimat Glomerular Filtration Rate 73 ML/MIN (>89) Result Diagram: 02/03/17 1040 02/03/17 1040 Microbiology Microbiology Date/Time Source Procedure Growth Status 02/01/17 16:27 Blood Peripheral Aerobic Blood Culture - Preliminary NO GROWTH IN 3 DAYS Resulted 02/01/17 16:27 Blood Peripheral Anaerobic Blood Culture - Preliminary NO GROWTH IN 3 DAYS Resulted 02/01/17 16:22 Blood Peripheral Aerobic Blood Culture - Preliminary NO GROWTH IN 3 DAYS Resulted 02/01/17 16:22 Blood Peripheral Anaerobic Blood Culture - Preliminary NO GROWTH IN 3 DAYS Resulted 02/03/17 11:12 Sputum Expectorated Sputum Gram Stain - Final Resulted 02/03/17 11:12 Sputum Expectorated Sputum Sputum Culture - Preliminary HEAVY GROWTH NORMAL RESPIRATORY RITA... Resulted 02/03/17 11:12 Nasal Aspirate Influenza Types A,B Antigen (SHARIF) - Final NEGATIVE FOR FLU A AND B ANTIGEN.... Complete 02/01/17 16:35 Urine Catheterized Urine Urine Culture - Final NO GROWTH IN 48 HOURS. Complete Imaging Last Impressions Chest CT 02/02/17 0000 Signed Impressions: Service Date/Time: Thursday, February 02, 2017 14:25 - CONCLUSION: Consolidative changes left lower lobe suspicious for inflammatory process. The left upper lobe is well-aerated. David Gill MD FACR Chest X-Ray 02/01/17 1545 Signed Impressions: Service Date/Time: Wednesday, February 01, 2017 15:56 - CONCLUSION: 1. Consolidation and volume loss in the left hemithorax with possible associated effusion. 2. Right lung remains clear. Robby Kenny MD Assessment and Plan Disease Oriented Problem List: (1) Chronic kidney disease (2) UTI (urinary tract infection) (3) Dementia (4) Abnormal chest x-ray (5) Coronary artery disease (6) DVT prophylaxis (7) blindness since 1967 (8) subdural hematoma/hygroma September 2014 (9) depression (10) anxiety (11) seizures, intermittent since May 2015 (12) glaucoma Symptom Scale: (1) Dyspnea 0-10 Scale: Unable to quantify (2) Debility 0-10 Scale: Unable to quantify (3) Confusion 0-10 Scale: Unable to quantify Pertinent Non-Medical Issues Psychosocial:The patient was born and raised in [place], lived in [place] for several years, and moved to [place] several years ago. For the last 6 years, she has lived with her daughter, Doroteo. She was twice, from her first , and from her second. The she has 3 daughters, and lives with her daughter Doroteo locally. 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 Spiritual: [employer] Legal: The patient lacks capacity for decision-making and will not regain that capacity. Her daughter Doroteo and daughter Corin are designated primary and secondary healthcare surrogate's respectively. Ethical issues impacting care: No known ethical issues impacting care at this time . Important Contacts Daughter: Doroteo [place] Home: Prognosis Patient is currently admitted with suspected UTI and pneumonia.The patient has advanced dementia with a fast score of 7d. She is dependent for all ADLS and incontinent of bowel and bladder. Speech is gibberish, although the family states that she is speaking more clearly today than she has in the last [address] [facility], she is aspirating. Family is declining artificial feeding. Given patient's advanced dementia and ongoing decline, she is appropriate for hospice services when the medical treatment goals become comfort oriented. . Code Status: Full Code Plan PLAN: Legal decision maker: Daughters, Doroteo and Corin are healthcare surrogates primary and alternate respectively. Goals: Remain aggressive at this time. CODE STATUS: Full code SYMPTOMS: * Confusion: Patient has advanced dementia that was first diagnosed 6+ years ago. Current FAST of 7d. Per the daughter Corin, she is speaking more clearly today than she has in 7 years, but remains unable to make her needs known. * Debility: She is dependent for all ADLs; incontinent of bowel and bladder; unable to feed herself. She requires restraints due to disruption of medical devices. She requires ariel lift transfer much of the time at home, but can sometimes stand and pivot to [facility] with assistance X 1. * Dyspnea: Patient has productive, croupy cough. Chest x-ray showed consolidation and volume loss in the left hemothorax with possible associated effusion, right lung remains clear. CT chest revealed consolidative changes in the left lower lobe suspicious for inflammatory process. Patient is receiving IV antibiotics in addition to scheduled and PRN nebulizer treatments. She was unable to comply with Acapella. She pulls off respiratory mask during treatments, necessitating the respiratory therapist to hold the tube in front of her mouth so that she inhales passively during normal breathing. She remains on 3 L nasal cannula, saturating adequately. * Dysphasia: Nothing by mouth pending decision by family regarding barium swallow. Family is currently declining any artificial feeding methods. Family will likely pursue barium swallow to confirm possible aspiration once they have considered any further risks or benefits. Palliative care will continue to follow the patient during hospital course as condition evolves, to assist patient/decision-maker with understanding of their medical conditions, weighing benefits/burdens of treatment options, for clarification of goals of treatment. Additionally will assist with any symptoms of palliative concern. . Attestation To help prompt me to consider important information that might be impacting today's encounter and assessment, information from prior notes written by myself or my colleagues may have been "brought forward" into today's note. My signature on this note, however, is an attestation that I personally performed the exam, history, and/or decision-making noted today, and, unless otherwise indicated, the interactions with patient, family, and staff as well as the review of records all occurred today. I also attest that the listed assessment and stated plan reflect my best clinical judgment today based on the combination of historical information, prior notes, and today's exam/ interactions. When time spent is documented, it refers only to time spent today by the signer, or if indicated, combined time spent today by collaborating physician/nurse practitioner. . Ketty Hicks Feb 04, 2017 16:19
[2017-02-04] MEDS: LEVOFLOXACIN 750 MG PREMIX INJ 150 ML IV SCH (19:45)
[2017-02-05] VITALS (19 sets, daily range): BP systolic 121–160; BP diastolic 64–91; PULSE 82–116; RESP 18–42; TEMP 98–99.1; O2SAT 91–96
[2017-02-05 04:46] LABS: AUTOMATED NEUTROPHIL # 3.3 TH/MM3 (1.8-7.7); BASOPHIL # 0.1 TH/MM3 (0-0.2); BASOPHIL % 1.1 % (0.0-2.0); EOSINOPHIL # 0.3 TH/MM3 (0-0.4); EOSINOPHIL % 5.5 % (0.0-4.0); HEMATOCRIT 35.3 % (35.0-46.0); HEMO FLAGS DIFF FINAL; LYMPH % 19.2 % (9.0-44.0); MEAN CELL VOLUME 91.5 FL (80.0-100.0); MEAN CORPUSCULAR HEMOGLOBIN 29.8 PG (27.0-34.0); MEAN CORPUSCULAR HGB CONC 32.5 % (32.0-36.0); MONO % 8.8 % (0.0-8.0); NEUT % 65.4 % (16.0-70.0); PLATELET COUNT 208 TH/MM3 (150-450); RED BLOOD COUNT 3.85 MIL/MM3 (4.00-5.30); RED CELL DISTRIBUTION WIDTH 13.2 % (11.6-17.2); WHITE BLOOD COUNT 5.2 TH/MM3 (4.0-11.0)
[2017-02-05 04:50] LABS: POTASSIUM 3.9 MEQ/L (3.5-5.1)
[2017-02-05 04:53] LABS: BICARBONATE 21.8 MEQ/L (21.0-32.0)
[2017-02-05] MEDS: CLINDAMYCIN INJ 600 MG in SODIUM CHLORIDE 0.9% INJ 50 ML IV SCH ×3 (06:28→22:09)
[2017-02-05] MEDS: SODIUM CHLORIDE 0.9% FLUSH 10 ML FLUSH IV FLUSH SCH ×2 (07:26→22:10)
[2017-02-05] MEDS: RESP: ALBUTEROL 2.5 MG/IPRATROPIUM 0.5 MG NEB (SCH) INH ×2 (08:06→15:03)
--- NOTE | 2017-02-05 09:17 | HHI.PR ---
Subjective Remarks Discussed with nurse. Patient has improved and is weaned down to 2 L nasal cannula. Patient has nonsensical speech and is unable to provide review of systems. Objective Vitals Vital Signs Date Time Temp Pulse Resp B/P (MAP) Pulse Ox O2 Delivery O2 Flow Rate FiO2 02/05/17 08:00 98.7 02/05/17 04:00 98.3 87 20 121/65 (83) 96 02/05/17 00:00 88 02/05/17 00:00 95 Nasal Cannula 3.00 02/05/17 00:00 98.2 88 20 132/76 (94) 95 02/04/17 20:15 94 Nasal Cannula 3.50 02/04/17 20:00 83 02/04/17 20:00 98.4 84 18 134/80 (98) 96 02/04/17 19:00 96 Nasal Cannula 3.00 02/04/17 16:00 98.9 94 24 141/79 (99) 02/04/17 12:00 98.8 80 24 131/79 (96) I/O 02/04/17 02/04/17 02/04/17 02/05/17 02/05/17 02/05/17 07:00 15:00 23:00 07:00 15:00 23:00 Intake Total 318 ml 150 ml 836 ml Output Total 1 ml Balance 318 ml 149 ml 836 ml Intake Oral 60 ml 0 ml IV Total 258 ml 150 ml 836 ml Output Stool Total 1 ml # Voids 3 1 1 3 # Bowel Movements 1 0 Result Diagram: 02/05/1742902/05/17 0430 Objective Remarks GENERAL: Elderly female with dementia laying in bed in no apparent distress. SKIN: Warm and dry. HEAD: Normocephalic. EYES: No scleral icterus. No injection or drainage. NECK: Supple, trachea midline. No JVD or lymphadenopathy. CARDIOVASCULAR: Regular rate and rhythm without murmurs, gallops, or rubs. RESPIRATORY: Breath sounds equal and clear to auscultation anteriorly bilaterally. No accessory muscle use on 2 L nasal cannula. GASTROINTESTINAL: Abdomen soft, non-tender, nondistended. EXTREMITIES: Trace pedal edema. NEUROLOGICAL: Awake, alert. Non-focal. Nonsensical speech. A/P Problem List: (1) blindness since 1967 Status: Acute (2) Dementia ICD Code: F03.90 - Dementia Status: Chronic (3) Pneumonia ICD Code: J18.9 - Pneumonia, unspecified organism Status: Acute (4) Fever ICD Code: R50.9 - Fever, unspecified Status: Acute (5) Acute respiratory failure with hypoxemia ICD Code: J96.01 - Acute respiratory failure with hypoxia Assessment and Plan -Left lower lobe consolidation community-acquired pneumonia, possibly aspiration pneumonia, acute hypoxemic respiratory failure requiring 4 L nasal cannula oxygen - initially greatly improved and weaned to 2 L nasal cannula. - - Duo nebs every 6 hours while awake, and every 2 hours as needed - continue levaquin, clindamycin - patient has penicillin allergy daughters not sure what the reaction was - blood cultures negative -Sputum culture - heavy growth normal respiratory brittanie -Repeat chest x-ray today -patient cannot participate with Acapella due to dementia -Dysphagia - Speech therapy recommending nothing by mouth. Family declining modified barium swallow at this time, they do not agree with the speech therapist assessment and feel the patient swallows fine. They want to wait several days and see how she does, hoping swallowing will improve with treatment of the pneumonia. Daughters want to avoid feeding tube. Advanced dementia -Patient is relatively bedridden, does not do any function of her own, -ST rec nothing by mouth. -Review of medical records indicate patient has been evaluated by palliative care in the past. At that time the patient lacked capacitated for decision making and will not regain that capacity. Patient was DNR at that time -palliative care following currently patient full code Chronic kidney disease stage III - stable -Avoid nephrotoxins DVT prevention -Sequential compression devices Discharge Planning Her daughter Doroteo cares for her at home flight crew time clerk. Problem Qualifiers (1) Pneumonia: Tasha Rodriguez MD Feb 05, 2017 09:17
[2017-02-05] MEDS: SODIUM CHLOR 0.9% 1000 ML INJ 1,000 ML IV SCH (09:21)
--- NOTE | 2017-02-05 10:38 | RADRPT ---
EXAM DATE/TIME: 02/05/2017 10:10 [facility] COMPARISON: CHEST SINGLE AP, February 01, 2017, 15:56. INDICATIONS : Cough, congestion. MEDICAL HISTORY : Alzheimer's cardiovascular disease gastroesophageal reflux disease. renal disease SURGICAL HISTORY : CABG. ENCOUNTER: Subsequent ACUITY: 4 - 6 days PAIN SCORE: Non-responsive. LOCATION: Bilateral chest FINDINGS: A single view of the chest demonstrates persistent consolidation/effusion in the left chest. There ma y be a developing airspace process laterally in the right perihilar distribution. There also appears to be some early blunting of the right costophrenic angle possibly representing a small effusion on t his side as well. Coronary ostial rings and median sternotomy wires are characteristic of prior CABG. Osseous structures are intact. Patient's chin partially obscured as the left upper lobe. CONCLUSION: 1. Persistent left basilar consolidation/effusion. 2. There may be a developing infiltrate laterally in the right perihilar distribution with small asso ciated effusion. Robby Kenny MD on February 05, 2017 at 10:31 Board Certified Radiologist. This report was verified electronically.
[2017-02-05] MEDS: DEXTROSE 5% IN WATE 1000ML INJ 1,000 ML IV SCH (14:14)
[2017-02-05] MEDS: METOPROLOL TARTRATE 25 MG TAB PO SCH (17:56)
[2017-02-05] MEDS: LEVOFLOXACIN 750 MG PREMIX INJ 150 ML IV SCH (20:21)
[2017-02-05] MEDS: QUEtiapine FUMARATE 200 MG TAB PO SCH (22:09)
[2017-02-05] MEDS: levETIRAcetam 500 MG TAB PO SCH (22:09)
[2017-02-06] VITALS (10 sets, daily range): BP systolic 118–146; BP diastolic 56–95; PULSE 80–119; RESP 16–20; TEMP 96.1–99; O2SAT 90–97
[2017-02-06] MEDS: CLINDAMYCIN INJ 600 MG in SODIUM CHLORIDE 0.9% INJ 50 ML IV SCH (05:56)
[2017-02-06] MEDS: DEXTROSE 5% IN WATE 1000ML INJ 1,000 ML IV SCH (08:07)
[2017-02-06] MEDS: SODIUM CHLORIDE 0.9% FLUSH 10 ML FLUSH IV FLUSH SCH ×2 (08:09→20:29)
[2017-02-06] MEDS: ASPIRIN 81 MG CHEW TAB CHEW SCH ×2 (09:00→10:07)
[2017-02-06] MEDS: METOPROLOL TARTRATE 25 MG TAB PO SCH ×2 (09:00→10:07)
[2017-02-06] MEDS: QUEtiapine FUMARATE 200 MG TAB PO SCH ×3 (09:00→20:30)
[2017-02-06] MEDS: levETIRAcetam 500 MG TAB PO SCH ×3 (09:00→20:29)
[2017-02-06] MEDS ORDERED: diphenhydrAMINE HCL 50 MG/ML VIAL IV PUSH PRN (10:00)
[2017-02-06] MEDS ORDERED: methylPREDNISolone SOD SUCC 125 MG/2 ML VIAL IV PUSH ONE (10:30)
[2017-02-06] MEDS ORDERED: diphenhydrAMINE HCL 50 MG/ML VIAL IV PUSH ONE (10:30)
--- NOTE | 2017-02-06 11:19 | HHI.PR ---
Subjective Remarks Patient was given gel mouth moisturizer which apparently has latex in it and had a reaction consisting of lip swelling. No hives, vomiting stridor. Patient also not cooperating with ST this morning. Patient placed in soft restraints last night. Objective Vitals Vital Signs Date Time Temp Pulse Resp B/P (MAP) Pulse Ox O2 Delivery O2 Flow Rate FiO2 02/06/17 08:16 97 Nasal Cannula 3.00 02/06/17 08:13 96 Nasal Cannula 3.00 02/06/17 08:00 96.1 80 20 118/75 (89) 96 02/06/17 04:00 96.7 88 18 127/95 (106) 93 02/06/17 00:48 99.0 81 18 124/56 (78) 94 02/06/17 00:30 94 Nasal Cannula 3.00 02/05/17 22:00 89 02/05/17 21:00 94 Nasal Cannula 3.00 02/05/17 20:35 94 Nasal Cannula 3.00 02/05/17 20:00 99.1 82 18 134/64 (87) 94 02/05/17 18:40 98.6 103 20 123/64 (83) 92 02/05/17 16:47 98.0 110 37 150/91 (110) 91 02/05/17 16:00 Nasal Cannula 3.00 02/05/17 16:00 112 02/05/17 15:00 100 02/05/17 14:00 112 02/05/17 13:00 114 02/05/17 12:18 98.7 108 32 160/85 (110) 96 02/05/17 12:00 116 02/05/17 12:00 Nasal Cannula 3.00 I/O 02/05/17 02/05/17 02/05/17 02/06/17 02/06/17 02/06/17 07:00 15:00 23:00 07:00 15:00 23:00 Intake Total 836 ml 505 ml 431 ml 724 ml 208 ml Output Total 1 ml Balance 836 ml 505 ml 430 ml 724 ml 208 ml Intake Oral 0 ml 100 ml IV Total 836 ml 505 ml 331 ml 724 ml 208 ml Output Stool Total 1 ml # Voids 3 3 6 # Bowel Movements 0 0 Result Diagram: 02/05/1742902/05/17429 Objective Remarks GENERAL: Elderly female with dementia laying in bed in no apparent distress. SKIN: Warm and dry. HEAD: Normocephalic. EYES: No scleral icterus. No injection or drainage. OP: lips mildly swollen, no uvula swelling, OP patent. NECK: Supple, trachea midline. No JVD or lymphadenopathy. CARDIOVASCULAR: Regular rate and rhythm without murmurs, gallops, or rubs. RESPIRATORY: Breath sounds equal and clear to auscultation anteriorly bilaterally. No accessory muscle use on 3 L nasal cannula. GASTROINTESTINAL: Abdomen soft, non-tender, nondistended. EXTREMITIES: Trace pedal edema. NEUROLOGICAL: Awake, alert. Non-focal. Nonsensical speech. A/P Problem List: (1) blindness since 1967 Status: Acute (2) Dementia ICD Code: F03.90 - Dementia Status: Chronic (3) Pneumonia ICD Code: J18.9 - Pneumonia, unspecified organism Status: Acute (4) Fever ICD Code: R50.9 - Fever, unspecified Status: Acute (5) Acute respiratory failure with hypoxemia ICD Code: J96.01 - Acute respiratory failure with hypoxia Assessment and Plan -Left lower lobe consolidation community-acquired pneumonia, possibly aspiration pneumonia, acute hypoxemic respiratory failure requiring 4 L nasal cannula oxygen - initially greatly improved and weaned to 2-3 L nasal cannula and has been stable on this for several days. - - Duo nebs as needed. - continue levaquin -change to liquid PO. DC clindamycin. - blood cultures negative -Sputum culture - heavy growth normal respiratory brittanie -Repeat chest x-ray 02/05 shows persisnet left basilar consolidation, possibly infiltrate laterally in right perihilar distribution. -patient cannot participate with Acapella due to dementia -Lip swelling / latex allergy - [facility]ed mouth moisturizer with latex - give solumedrol 125 mg IV x 1, benadryl. -Dysphagia - patient tolerating pureed with thin liquids. Advanced dementia -Patient is relatively bedridden, does not do any function of her own, -ST rec nothing by mouth. -Review of medical records indicate patient has been evaluated by palliative care in the past. At that time the patient lacked capacitated for decision making and will not regain that capacity. Patient was DNR at that time -palliative care following currently patient full code Chronic kidney disease stage III - stable -Avoid nephrotoxins DVT prevention -Sequential compression devices Discharge Planning Her daughter Doroteo cares for her at home director multimedia. DC planning. Problem Qualifiers (1) Pneumonia: Tasha Rodriguez MD Feb 06, 2017 11:19
[2017-02-06] MEDS ORDERED: LEVOFLOXACIN ORAL SOLN 2500 MG/100 ML BOTTLE PO SCH (20:00)
[2017-02-07] VITALS (38 sets, daily range): BP systolic 94–152; BP diastolic 53–90; PULSE 67–109; RESP 18–36; TEMP 97.6–98.7; O2SAT 84–100
[2017-02-07 01:56] LABS: BLOOD GAS BASE EXCESS -1.9 mmol/L (-2-2); BLOOD GAS CARBOXYHEMOGLOBIN 1.5 % (0-4); BLOOD GAS HCO3 21 mmol/L (22-26); BLOOD GAS O2 HGB SATURATION 86 % (90-100); BLOOD GAS OXYGEN CONTENT 15.6 Vol % (12.0-20.0); BLOOD GAS PCO2 30 mmHg (38-42); BLOOD GAS PO2 50 mmHg (61-120)
[2017-02-07 01:57] LABS: CRITICAL VALUE YES; DRAW SITE LT RADIAL; LITER FLOW 4 L/M; NUMBER OF ARTERIAL PUNCTURES 1; OXYGEN DEVICE NASAL CANNULA; STAT YES; ULNAR PULSE PRESENT
--- NOTE | 2017-02-07 03:02 | RADRPT ---
EXAM DATE/TIME: 02/07/2017 01:34 [place] COMPARISON: CHEST SINGLE AP, February 05, 2017, 10:10. INDICATIONS : Shortness of breath. MEDICAL HISTORY : Alzheimer's cardiovascular disease gastroesophageal reflux disease. renal disease SURGICAL HISTORY : CABG. ENCOUNTER: Subsequent ACUITY: 1 week PAIN SCORE: Non-responsive. LOCATION: Bilateral chest FINDINGS: Patient is rotated towards the left. There is persistent consolidation in the left lower lobe with l oss of delineation the entire left hemidiaphragm. Patchy areas of non-consolidative infiltrate in th e lateral right lower lung is similar to prior when taking into account rotation. The heart is enlar ged. Evidence of prior median sternotomy. CONCLUSION: 1. Persistent left lower lobe consolidation. 2. Persistent patchy area of infiltrate in the lower lateral right lung. Ernesto Arenas MD on February 07, 2017 at 2:59 Board Certified Radiologist. This report was verified electronically.
[2017-02-07] MEDS: CEFEPIME INJ 2,000 MG in SODIUM CHLORIDE 0.9% INJ 100 ML IV SCH ×3 (03:49→20:03)
[2017-02-07 04:33] LABS: BLOOD GAS BASE EXCESS -1.3 mmol/L (-2-2); BLOOD GAS CARBOXYHEMOGLOBIN 1.2 % (0-4); BLOOD GAS HCO3 22 mmol/L (22-26); BLOOD GAS O2 HGB SATURATION 93 % (90-100); BLOOD GAS OXYGEN CONTENT 15.9 Vol % (12.0-20.0); BLOOD GAS PCO2 33 mmHg (38-42); BLOOD GAS PO2 67 mmHg (61-120); BLOOD GAS TOTAL HGB 12.2 G/DL (12.0-16.0); CRITICAL VALUE NO; DRAW SITE RT BRACHIAL; LITER FLOW 13 L/M; NUMBER OF ARTERIAL PUNCTURES 1; OXYGEN DEVICE PRB MASK; STAT NO
[2017-02-07] MEDS: RESP: ALBUTEROL 2.5 MG/IPRATROPIUM 0.5 MG NEB (SCH) NEB ×4 (04:39→21:12)
[2017-02-07] MEDS: QUEtiapine FUMARATE 200 MG TAB PO SCH ×2 (09:00→20:03)
[2017-02-07] MEDS: METOPROLOL TARTRATE 25 MG TAB PO SCH (10:41)
[2017-02-07] MEDS: ASPIRIN 81 MG CHEW TAB CHEW SCH (10:41)
[2017-02-07] MEDS: levETIRAcetam 500 MG TAB PO SCH ×2 (10:41→20:03)
[2017-02-07] MEDS: SODIUM CHLORIDE 0.9% FLUSH 10 ML FLUSH IV FLUSH SCH ×2 (10:43→20:03)
[2017-02-07] MEDS ORDERED: LINEZOLID 600 MG PREMIX 300 ML IV SCH (11:45)
--- NOTE | 2017-02-07 11:50 | HHI.PR ---
Subjective Remarks Patient had an episode of oxygen desaturation around 1:30 a.m., was placed on nonrebreather and transferred to ICU. She had mucus suctioned from airway and respiratory distress then resolved. Patient now on 2L NC, alert and fiesty, had applesauce this morning. Cxr was obtained which showed no change. Objective Vitals Vital Signs Date Time Temp Pulse Resp B/P (MAP) Pulse Ox O2 Delivery O2 Flow Rate FiO2 02/07/17 10:00 108 36 110/69 (83) 100 02/07/17 09:00 76 24 105/63 (77) 97 02/07/17 08:00 68 18 112/57 (75) 100 02/07/17 08:00 67 02/07/17 08:00 Partial Non-Rebreather 13.00 02/07/17 07:38 100 Partial Rebreather 13.00 02/07/17 05:00 84 22 94/53 (67) 93 02/07/17 04:00 98.7 86 22 120/60 (80) 98 02/07/17 04:00 Partial Non-Rebreather 13.00 02/07/17 03:00 102 33 109/67 (81) 93 02/07/17 02:31 97.6 106 36 133/90 (104) 91 02/07/17 02:31 106 02/07/17 02:00 92 Partial Non-Rebreather 15.00 02/07/17 01:50 94 Partial Rebreather 13.00 02/07/17 01:20 89 Nasal Cannula 2.00 02/07/17 01:20 90 Nasal Cannula 4.00 02/07/17 00:30 90 Nasal Cannula 4.00 02/07/17 00:00 84 21 02/07/17 00:00 98.1 109 18 142/72 (95) 84 02/06/17 23:30 84 Nasal Cannula 2.00 02/06/17 20:00 101 02/06/17 20:00 92 Room Air 02/06/17 20:00 96.5 119 20 121/66 (84) 90 02/06/17 19:34 92 21 02/06/17 16:00 98.4 96 16 126/86 (99) 92 02/06/17 15:01 92 02/06/17 12:00 97.7 96 20 146/75 (98) 93 I/O 02/06/17 02/06/17 02/06/17 02/07/17 02/07/17 02/07/17 07:00 15:00 23:00 07:00 15:00 23:00 Intake Total 724 ml 208 ml 60 ml 100 ml Balance 724 ml 208 ml 60 ml 100 ml Intake Oral 60 ml IV Total 724 ml 208 ml 100 ml # Voids 6 1 1 # Bowel Movements 0 1 1 Result Diagram: 02/05/1742902/05/17429 Objective Remarks GENERAL: Elderly female with dementia laying in bed in no apparent distress. SKIN: Warm and dry. HEAD: Normocephalic. EYES: No scleral icterus. No injection or drainage. OP: lips no longer swollen, no uvula swelling, OP patent. NECK: Supple, trachea midline. No JVD or lymphadenopathy. CARDIOVASCULAR: Regular rate and rhythm without murmurs, gallops, or rubs. RESPIRATORY: Breath sounds equal and clear to auscultation anteriorly bilaterally. No accessory muscle use on 2 L nasal cannula. GASTROINTESTINAL: Abdomen soft, non-tender, nondistended. EXTREMITIES: Trace pedal edema. NEUROLOGICAL: Awake, alert. Non-focal. Nonsensical speech. A/P Problem List: (1) blindness since 1967 Status: Acute (2) Dementia ICD Code: F03.90 - Dementia Status: Chronic (3) Pneumonia ICD Code: J18.9 - Pneumonia, unspecified organism Status: Acute (4) Fever ICD Code: R50.9 - Fever, unspecified Status: Acute (5) Acute respiratory failure with hypoxemia ICD Code: J96.01 - Acute respiratory failure with hypoxia Assessment and Plan -Left lower lobe consolidation community-acquired pneumonia, possibly aspiration pneumonia, acute hypoxemic respiratory failure requiring 4 L nasal cannula oxygen - now weaned to 2L NC. -Episode of desaturation last night likely secondary to mucus/sputum in airway which she was not adequately clearing due to decreased mentation from benadryl - resp distress resolved after suctioning. -Continue to hold any further benadryl, hold seroquel - monitor in ICU today to ensure she does not require any further suctioning -Cont levaquin - cefepime added last night by preparation room worker team - will continue for now - blood cultures negative -Sputum culture - heavy growth normal respiratory brittanie. repeat sputum culture 02/07 pending. check strep pne ag and legionella ag -Repeat chest x-ray 02/05 shows persisnet left basilar consolidation, possibly infiltrate laterally in right perihilar distribution, cxr 02/07 shows same. -patient cannot participate with Acapella due to dementia -Lip swelling / latex allergy - v'ed mouth moisturizer with latex - s/p solumedrol 125 mg IV x 1, benadryl. -Dysphagia - patient tolerating pureed with thin liquids. Advanced dementia -Patient is relatively bedridden, does not do any function of her own, -ST rec nothing by mouth. -Review of medical records indicate patient has been evaluated by palliative care in the past. At that time the patient lacked capacitated for decision making and will not regain that capacity. Patient was DNR at that time -palliative care following currently patient full code Chronic kidney disease stage III - stable -Avoid nephrotoxins DVT prevention -Sequential compression devices Discharge Planning Her daughter Doroteo cares for her at home flare maker and plans to take her home at discharge. D/w daughters at bedside Problem Qualifiers (1) Pneumonia: Tasha Rodriguez MD Feb 07, 2017 11:50
[2017-02-08] VITALS (12 sets, daily range): BP systolic 111–172; BP diastolic 49–97; PULSE 70–102; RESP 18–36; TEMP 96.6–98; O2SAT 95–98
[2017-02-08] MEDS: CEFEPIME INJ 2,000 MG in SODIUM CHLORIDE 0.9% INJ 100 ML IV SCH ×3 (04:00→19:17)
[2017-02-08] MEDS: ASPIRIN 81 MG CHEW TAB CHEW SCH (08:40)
[2017-02-08] MEDS: METOPROLOL TARTRATE 25 MG TAB PO SCH (08:40)
[2017-02-08] MEDS: levETIRAcetam 500 MG TAB PO SCH ×2 (08:40→20:01)
[2017-02-08] MEDS: SODIUM CHLORIDE 0.9% FLUSH 10 ML FLUSH IV FLUSH SCH ×2 (08:40→20:01)
[2017-02-08] MEDS: QUEtiapine FUMARATE 200 MG TAB PO SCH ×2 (08:40→20:01)
[2017-02-08] MEDS: RESP: ALBUTEROL 2.5 MG/IPRATROPIUM 0.5 MG NEB (SCH) NEB ×3 (11:18→21:22)
--- NOTE | 2017-02-08 15:45 | HHI.PR ---
Subjective Remarks Discussed with Aditya DEVINE. Patient has been stable on room air than today. She did desat to 89% overnight and was placed on 2 L nasal cannula. Patient has not required to be suctioned. She is taking her medications and taking up. Diet. Objective Vitals Vital Signs Date Time Temp Pulse Resp B/P (MAP) Pulse Ox O2 Delivery O2 Flow Rate FiO2 02/08/17 12:00 78 26 118/66 (83) 97 02/08/17 12:00 97 Room Air 02/08/17 11:00 96 21 02/08/17 10:00 102 36 172/95 (120) 95 02/08/17 09:28 90 26 165/87 (113) 95 02/08/17 09:12 90 27 111/97 (102) 96 02/08/17 08:00 98.0 84 24 165/87 (113) 95 02/08/17 08:00 95 Room Air 02/08/17 08:00 86 02/08/17 04:00 96.9 71 18 128/62 (84) 96 02/08/17 04:00 80 02/08/17 04:00 96 Nasal Cannula 2.00 02/08/17 00:00 70 20 95 02/08/17 00:00 Nasal Cannula 2.00 02/08/17 00:00 97.5 72 18 111/49 (69) 98 02/08/17 00:00 70 02/07/17 23:45 70 18 98 02/07/17 23:30 72 20 98 02/07/17 23:15 70 20 98 02/07/17 23:00 72 20 96 02/07/17 22:45 76 20 93 02/07/17 22:30 74 20 94 02/07/17 22:15 74 18 96 02/07/17 22:00 88 28 93 02/07/17 21:45 80 21 94 02/07/17 21:30 74 22 95 02/07/17 21:15 84 20 95 02/07/17 21:13 98 Nasal Cannula 3.00 02/07/17 21:00 70 23 93 02/07/17 20:45 82 30 93 02/07/17 20:30 84 31 92 02/07/17 20:15 78 24 91 02/07/17 20:09 80 21 152/85 (107) 93 02/07/17 20:00 80 11/18/17 20:00 Nasal Cannula 2.00 02/07/17 20:00 97.8 92 36 93 02/07/17 20:00 80 30 89 02/07/17 19:58 92 21 02/07/17 19:45 80 20 89 02/07/17 19:30 80 27 93 02/07/17 16:07 84 36 119/67 (84) 99 02/07/17 16:00 Room Air I/O 02/07/17 02/07/17 02/07/17 02/08/17 02/08/17 02/08/17 07:00 15:00 23:00 07:00 15:00 23:00 Intake Total 100 ml 100 ml 220 ml 363 ml 100 ml Balance 100 ml 100 ml 220 ml 363 ml 100 ml Intake Oral 120 ml 60 ml IV Total 100 ml 100 ml 100 ml 303 ml 100 ml # Voids 1 3 3 1 # Bowel Movements 1 0 Result Diagram: 02/05/1742902/05/17429 Objective Remarks GENERAL: Elderly female with dementia laying in bed in no apparent distress. SKIN: Warm and dry. HEAD: Normocephalic. EYES: No scleral icterus. No injection or drainage. OP: lips no longer swollen, no uvula swelling, OP patent. NECK: Supple, trachea midline. No JVD or lymphadenopathy. CARDIOVASCULAR: Regular rate and rhythm without murmurs, gallops, or rubs. RESPIRATORY: Breath sounds equal and clear to auscultation anteriorly bilaterally. No accessory muscle use on 2 L nasal cannula. GASTROINTESTINAL: Abdomen soft, non-tender, nondistended. EXTREMITIES: Trace pedal edema. NEUROLOGICAL: Awake, alert. Non-focal. Nonsensical speech. A/P Problem List: (1) blindness since 1967 Status: Acute (2) Dementia ICD Code: F03.90 - Dementia Status: Chronic (3) Pneumonia ICD Code: J18.9 - Pneumonia, unspecified organism Status: Acute (4) Fever ICD Code: R50.9 - Fever, unspecified Status: Acute (5) Acute respiratory failure with hypoxemia ICD Code: J96.01 - Acute respiratory failure with hypoxia Assessment and Plan -Left lower lobe consolidation community-acquired pneumonia, possibly aspiration pneumonia, acute hypoxemic respiratory failure requiring 4 L nasal cannula oxygen - now weaned to 2L NC and at times room air. -Episode of desaturation morning of 02/07 likely secondary to mucus/sputum in airway which she was not adequately clearing due to decreased mentation from benadryl - resp distress resolved after suctioning. -Continue to hold any further benadryl, hold seroquel -she has been stable not requiring any further suctioning will transfer to intermediate care. -Cont levaquin - cefepime added on 02/07 - blood cultures negative -Sputum culture - heavy growth normal respiratory brittanie. repeat sputum culture 02/07 pending. -Repeat chest x-ray 02/05 shows persisnet left basilar consolidation, possibly infiltrate laterally in right perihilar distribution, cxr 02/07 shows same. -patient cannot participate with Acapella due to dementia -Lip swelling / latex allergy - rcv'ed mouth moisturizer with latex - resolved s /p solumedrol 125 mg IV x 1, benadryl. -Dysphagia - patient tolerating pureed with thin liquids. Advanced dementia -Patient is relatively bedridden, does not do any function of her own, -ST rec nothing by mouth. -Review of medical records indicate patient has been evaluated by palliative care in the past. At that time the patient lacked capacitated for decision making and will not regain that capacity. Patient was DNR at that time -palliative care following currently patient full code Chronic kidney disease stage III - stable -Avoid nephrotoxins DVT prevention -Sequential compression devices Discharge Planning Her daughter Doroteo cares for her at home full stack web developer and plans to take her home at discharge. Anticipate discharge home in 1-2 days if remains stable. Problem Qualifiers (1) Pneumonia: Tahsa Rodriguez MD Feb 08, 2017 15:45
[2017-02-09] VITALS (14 sets, daily range): BP systolic 82–117; BP diastolic 49–92; PULSE 66–116; RESP 15–27; TEMP 96.7–98.4; O2SAT 92–100
[2017-02-09] MEDS: CEFEPIME INJ 2,000 MG in SODIUM CHLORIDE 0.9% INJ 100 ML IV SCH ×3 (03:22→20:41)
[2017-02-09] MEDS: RESP: ALBUTEROL 2.5 MG/IPRATROPIUM 0.5 MG NEB (SCH) NEB ×4 (03:46→21:09)
[2017-02-09] MEDS: QUEtiapine FUMARATE 200 MG TAB PO SCH ×2 (10:10→20:41)
[2017-02-09] MEDS: METOPROLOL TARTRATE 25 MG TAB PO SCH (10:11)
[2017-02-09] MEDS: levETIRAcetam 500 MG TAB PO SCH ×2 (10:14→20:42)
[2017-02-09] MEDS: ASPIRIN 81 MG CHEW TAB CHEW SCH (10:15)
[2017-02-09] MEDS: SODIUM CHLORIDE 0.9% FLUSH 10 ML FLUSH IV FLUSH SCH ×2 (12:16→20:42)
[2017-02-09] MEDS: NYSTATIN SUSP 500,000 U/5 ML CUP SWISH-SWAL SCH ×3 (16:17→20:42)
--- NOTE | 2017-02-09 17:04 | HHI.PR ---
Subjective Remarks Follow-up community-acquired pneumonia 02/09/17-shift and examined, alert but does not follow commands .daughter by the bedside and states patient does well at home. She also stated patient is DO NOT RESUSCITATE. Currently afebrile. HR low 100's. +Oral thrush Objective Vitals Vital Signs Date Time Temp Pulse Resp B/P (MAP) Pulse Ox O2 Delivery O2 Flow Rate FiO2 02/09/17 16:00 90 Nasal Cannula 1.00 02/09/17 16:00 94 20 100/55 (70) 94 02/09/17 12:08 116 27 102/61 (75) 94 02/09/17 12:00 96.7 94 21 82/50 (61) 93 02/09/17 12:00 93 Room Air 02/09/17 10:00 80 15 117/92 (100) 100 02/09/17 09:58 100 Nasal Cannula 2.00 02/09/17 08:00 97.5 66 16 104/66 (79) 100 02/09/17 08:00 66 02/09/17 08:00 100 Nasal Cannula 2.00 02/09/17 04:00 96.9 75 22 116/67 (83) 100 02/09/17 04:00 100 Nasal Cannula 2.00 02/09/17 03:46 100 Nasal Cannula 2.00 02/09/17 00:00 98 Nasal Cannula 2.00 02/09/17 00:00 97.4 86 20 112/68 (83) 98 02/09/17 00:00 86 02/08/17 23:00 Nasal Cannula 2.00 02/08/17 20:00 95 Room Air 02/08/17 20:00 96 21 02/08/17 20:00 96.6 82 24 154/73 (100) 95 02/08/17 19:15 77 I/O 02/08/17 02/08/17 02/08/17 02/09/17 02/09/17 02/09/17 06:59 14:59 22:59 06:59 14:59 22:59 Intake Total 363 ml 100 ml 220 ml 160 ml 100 ml Balance 363 ml 100 ml 220 ml 160 ml 100 ml Intake Oral 60 ml 120 ml 60 ml IV Total 303 ml 100 ml 100 ml 100 ml 100 ml # Voids 3 1 4 2 # Bowel Movements 0 Result Diagram: 02/05/17 0430 02/05/17 0430 Imaging Last Impressions Chest X-Ray 02/07/17 0000 Signed Impressions: Service Date/Time: Tuesday, February 07, 2017 01:34 - CONCLUSION: 1. Persistent left lower lobe consolidation. 2. Persistent patchy area of infiltrate in the lower lateral right lung. Ernesto Arenas MD Chest CT 02/02/17 0000 Signed Impressions: Service Date/Time: Thursday, February 02, 2017 14:25 - CONCLUSION: Consolidative changes left lower lobe suspicious for inflammatory process. The left upper lobe is well-aerated. David Gill MD FACR Objective Remarks GENERAL: NAD SKIN: Warm and dry. HEAD: Normocephalic. EYES: No scleral icterus. No injection or drainage. NECK: Supple, trachea midline. No JVD or lymphadenopathy. Oral: + Oral thrush CARDIOVASCULAR: Regular rate and rhythm without murmurs, gallops, or rubs. RESPIRATORY: Breath sounds equal bilaterally. No accessory muscle use. GASTROINTESTINAL: Abdomen soft, non-tender, nondistended. MUSCULOSKELETAL: No cyanosis, or edema. BACK: Nontender without obvious deformity. No CVA tenderness. Procedures none A/P Problem List: (1) blindness since 1967 Status: Acute (2) Dementia ICD Code: F03.90 - Dementia Status: Chronic (3) Pneumonia ICD Code: J18.9 - Pneumonia, unspecified organism Status: Acute (4) Fever ICD Code: R50.9 - Fever, unspecified Status: Acute (5) Acute respiratory failure with hypoxemia ICD Code: J96.01 - Acute respiratory failure with hypoxia Assessment and Plan 81-year-old female with -Left lower lobe consolidation community-acquired pneumonia, possibly aspiration pneumonia, acute hypoxemic respiratory failure requiring 4 L nasal cannula oxygen - now weaned to 2L NC and at times room air. -Currently on Cefepime - blood cultures negative -Lip swelling / latex allergy - rcv'ed mouth moisturizer with latex - resolved s /p solumedrol 125 mg IV x 1, benadryl. -Dysphagia - patient tolerating pureed with thin liquids. Oral thrush -Type Nystatin Advanced dementia -Patient is relatively bedridden, does not do any function of her own, -ST rec nothing by mouth. -Review of medical records indicate patient has been evaluated by palliative care in the past. At that time the patient lacked capacitated for decision making and will not regain that capacity. Patient was DNR at that time -palliative care following currently patient full code Chronic kidney disease stage III - stable -Avoid nephrotoxins DVT prevention -Sequential compression devices Problem Qualifiers (1) Pneumonia: Parviz Tubbs MD Feb 09, 2017 17:04
[2017-02-09] MEDS ORDERED: Nystatin Liq SWISH-SWAL (17:08)
--- NOTE | 2017-02-09 17:12 | HHI.DS ---
Discharge Summary Admission Date Feb 01, 2017 at 16:56 Discharge Date: Feb 09, 2017 Admitting Diagnosis sepsis, pneumonia, advanced dementia (1) blindness since 1967 Status: Acute (2) Dementia ICD Code: F03.90 - Dementia Status: Chronic (3) Pneumonia ICD Code: J18.9 - Pneumonia, unspecified organism Status: Acute (4) Fever ICD Code: R50.9 - Fever, unspecified Status: Acute (5) Acute respiratory failure with hypoxemia ICD Code: J96.01 - Acute respiratory failure with hypoxia Procedures none Brief History - From Admission Written by Rony Degroot, acting as scribe for Dr. Barton on 02/01/17 at 18:31. 81-year-old female with rather significant medical history of advanced dementia , bedridden, coronary artery disease, hyperlipidemia, urinary incontinence, chronic urinary tract infection who is brought to the hospital by her daughter because of fever and cough. Patient is unable to give any information, information taken from daughter at bedside. Patient's daughter states that last night that she had a fever 101.0. And she has had a croupy cough for the last 3 days. Because of those reasons she brought her mother to the hospital for evaluation. She denies any other symptoms. There is no shortness of breath , sputum production, change in mentation, denies any increased somnolence, no decrease in oral intake. Patient had workup done emergency department and chest x-ray shows complete opacification of the left lung. Because of that reason the ER physician recommended patient be admitted for further evaluation and management. The daughter indicates that she does not have any [place] DO NOT RESUSCITATE order, healthcare surrogacy, or living will. Records do indicate that one year ago she was evaluated by palliative care and at that time she was a DNR. As indicated that she lacks capacity for any decision making and will not regain that capacity. Apparently the patient has been in hospice before and was discharged from hospice in August 2015. It was indicated that patient is eligible for hospice services as the family chooses to transition to comfort care. At the present time will continue workup for the patient's complete opacification of her left lung. Further plans depending on results and patient's response to treatment. CBC/BMP: 02/05/17 0430 02/05/17 0430 Significant Findings Laboratory Tests Test 02/07/17 01:45 02/07/17 04:24 Blood Gas HCO3 21 mmol/L (22-26) Blood Gas Oxygen Saturation 86 % (90-100) Arterial Blood pH 7.47 (7.380-7.420) 7.44 (7.380-7.420) Arterial Blood Partial Pressure CO2 30 mmHg (38-42) 33 mmHg (38-42) Arterial Blood Partial Pressure O2 50 mmHg (61-120) Imaging Last Impressions Chest X-Ray 02/07/17 0000 Signed Impressions: Service Date/Time: Tuesday, February 07, 2017 01:34 - CONCLUSION: 1. Persistent left lower lobe consolidation. 2. Persistent patchy area of infiltrate in the lower lateral right lung. Ernesto Arenas MD Chest CT 02/02/17 0000 Signed Impressions: Service Date/Time: Thursday, February 02, 2017 14:25 - CONCLUSION: Consolidative changes left lower lobe suspicious for inflammatory process. The left upper lobe is well-aerated. David Gill MD FACR PE at Discharge GENERAL: NAD SKIN: Warm and dry. HEAD: Normocephalic. EYES: No scleral icterus. No injection or drainage. NECK: Supple, trachea midline. No JVD or lymphadenopathy. Oral: + Oral thrush CARDIOVASCULAR: Regular rate and rhythm without murmurs, gallops, or rubs. RESPIRATORY: Breath sounds equal bilaterally. No accessory muscle use. GASTROINTESTINAL: Abdomen soft, non-tender, nondistended. MUSCULOSKELETAL: No cyanosis, or edema. BACK: Nontender without obvious deformity. No CVA tenderness. Hospital Course Patient admitted secondary to community-acquired pneumonia and was started on antibiotics with improvement of symptoms. Due to dysphagia, speech therapy was consulted and patient diagnosed with oral thrush for which she was started on nystatin. Physical therapy was consulted. She completed antibiotic therapy prior to discharge. DVT and GI prophylaxis were provided Pt Condition on Discharge: Fair Discharge Disposition: Discharge Home Discharge Time: <= 30 minutes Discharge Instructions DIET: Follow Instructions for: Heart Healthy Diet Speech Therapy-Diet Recommends: Pureed Activities you can perform: Regular-No Restrictions Follow up Referrals: PCP Follow-up - 1 Week New Medications: [Nystatin Liq] () 5 ML SUSP 5 ML SWISH-SWAL QID, #100 Continued Medications: Aspirin (Aspirin) 81 Mg Chew 81 MG CHEW DAILY, TAB 0 Refills Levetiracetam (Levetiracetam) 500 Mg Tab 500 MG PO BID for Control Seizures, #60 TAB 0 Refills Loratadine (Allergy Relief) 10 Mg Tab 10 MG PO DAILY, TAB Metoprolol Tartrate (Metoprolol Tartrate) 25 Mg Tab 25 MG PO DAILY, #30 TAB 0 Refills Quetiapine (Seroquel) 200 Mg Tab 200 MG PO BID, #60 TAB 0 Refills Parviz Tubbs MD Feb 09, 2017 17:12
[2017-02-10] VITALS (9 sets, daily range): BP systolic 81–132; BP diastolic 48–75; PULSE 84–102; RESP 19–28; TEMP 97.3–98.1; O2SAT 93–97
[2017-02-10] MEDS ORDERED: SODIUM CHLORID 0.9% 500 ML INJ 500 ML IV SCH (01:15)
[2017-02-10] MEDS: RESP: ALBUTEROL 2.5 MG/IPRATROPIUM 0.5 MG NEB (SCH) NEB ×2 (03:17→09:02)
[2017-02-10] MEDS: CEFEPIME INJ 2,000 MG in SODIUM CHLORIDE 0.9% INJ 100 ML IV SCH ×2 (05:03→11:00)
[2017-02-10] MEDS: NYSTATIN SUSP 500,000 U/5 ML CUP SWISH-SWAL SCH ×3 (07:53→13:01)
[2017-02-10] MEDS: METOPROLOL TARTRATE 25 MG TAB PO SCH ×2 (07:53→08:07)
[2017-02-10] MEDS: levETIRAcetam 500 MG TAB PO SCH ×2 (07:53→08:07)
[2017-02-10] MEDS: SODIUM CHLORIDE 0.9% FLUSH 10 ML FLUSH IV FLUSH SCH (07:54)
[2017-02-10] MEDS: QUEtiapine FUMARATE 200 MG TAB PO SCH ×2 (07:54→08:07)
[2017-02-10] MEDS: ASPIRIN 81 MG CHEW TAB CHEW SCH ×2 (07:54→08:07)
--- NOTE | 2017-02-10 08:53 | HHI.FF ---
Face to Face Verification Diagnosis: (1) Pneumonia (2) Advanced dementia (3) Acute respiratory failure with hypoxemia Physical Therapy Order: Evaluate and Treat Home Health Nursing Order: Signs/symptoms of disease process I have seen patient Skye Martínez on 02/10/17. My clinical findings support the need for the requested home health care services because: Deconditioned w/ increased weakness I certify that my clinical findings support that this patient is homebound because: Poor cardiac reserve Parviz Tubbs MD Feb 10, 2017 08:53
--- NOTE | 2017-02-10 12:00 | HHI.PR ---
Subjective Remarks Follow-up community-acquired pneumonia 02/09/17-shift and examined, alert but does not follow commands .daughter by the bedside and states patient does well at home. She also stated patient is DO NOT RESUSCITATE. Currently afebrile. HR low 100's. +Oral thrush 02/10/17-patient seen and examined, daughter Doroteo by the bedside. No acute event overnight. Currently afebrile. Objective Vitals Vital Signs Date Time Temp Pulse Resp B/P (MAP) Pulse Ox O2 Delivery O2 Flow Rate FiO2 02/10/17 09:04 97 Nasal Cannula 2.00 02/10/17 08:00 97 Nasal Cannula 2.00 02/10/17 08:00 97.4 94 19 132/68 (89) 97 02/10/17 07:15 84 02/10/17 06:25 94 Nasal Cannula 2.00 02/10/17 06:00 90 20 104/75 (85) 93 02/10/17 04:00 98.1 100 21 90/52 (65) 95 02/10/17 02:00 100 28 85/50 (62) 94 02/10/17 00:30 100 22 100/61 (74) 97 02/10/17 00:07 95 Nasal Cannula 2.00 02/10/17 00:00 102 24 81/48 (59) 95 02/09/17 22:45 102 24 90/52 (65) 93 02/09/17 22:00 110 23 84/49 (61) 92 02/09/17 21:25 Nasal Cannula 2.00 02/09/17 20:24 94 21 02/09/17 20:00 98.4 92 20 102/60 (74) 93 02/09/17 20:00 88 02/09/17 20:00 95 Nasal Cannula 2.00 02/09/17 19:00 104 26 100/56 (71) 92 02/09/17 16:00 90 Nasal Cannula 1.00 02/09/17 16:00 94 20 100/55 (70) 94 02/09/17 12:08 116 27 102/61 (75) 94 02/09/17 12:00 96.7 94 21 82/50 (61) 93 02/09/17 12:00 93 Room Air I/O 11/20/17 11/20/02/09/17 02/10/17 02/10/17 02/10/17 07:00 15:00 23:00 07:00 15:00 23:00 Intake Total 160 ml 100 ml 100 ml 200 ml Output Total 300 ml Balance 160 ml 100 ml 100 ml -100 ml Intake Oral 60 ml 0 ml IV Total 100 ml 100 ml 100 ml 200 ml Output Urine Total 300 ml # Voids 2 2 # Bowel Movements 0 0 Objective Remarks GENERAL: NAD SKIN: Warm and dry. HEAD: Normocephalic. EYES: No scleral icterus. No injection or drainage. NECK: Supple, trachea midline. No JVD or lymphadenopathy. Oral: + Oral thrush CARDIOVASCULAR: Regular rate and rhythm without murmurs, gallops, or rubs. RESPIRATORY: Breath sounds equal bilaterally. No accessory muscle use. GASTROINTESTINAL: Abdomen soft, non-tender, nondistended. MUSCULOSKELETAL: No cyanosis, or edema. BACK: Nontender without obvious deformity. No CVA tenderness. Procedures none A/P Problem List: (1) blindness since 1967 Status: Acute (2) Dementia ICD Code: F03.90 - Dementia Status: Chronic (3) Pneumonia ICD Code: J18.9 - Pneumonia, unspecified organism Status: Acute (4) Fever ICD Code: R50.9 - Fever, unspecified Status: Acute (5) Acute respiratory failure with hypoxemia ICD Code: J96.01 - Acute respiratory failure with hypoxia Assessment and Plan 81-year-old female with -Left lower lobe consolidation community-acquired pneumonia, possibly aspiration pneumonia, acute hypoxemic respiratory failure requiring 4 L nasal cannula oxygen - -Completed Cefepime - blood cultures negative -Lip swelling / latex allergy - v'ed mouth moisturizer with latex - resolved s /p solumedrol 125 mg IV x 1, benadryl. -Dysphagia - patient tolerating pureed with thin liquids. Oral thrush -Type Nystatin Advanced dementia -Patient is relatively bedridden, does not do any function of her own, -Review of medical records indicate patient has been evaluated by palliative care in the past. At that time the patient lacked capacitated for decision making and will not regain that capacity. Patient was DNR at that time -palliative care following currently patient full code Chronic kidney disease stage III - stable -Avoid nephrotoxins DVT prevention -Sequential compression devices Problem Qualifiers (1) Pneumonia: Parviz Tubbs MD Feb 10, 2017 12:00
== END 2017-02-10 15:30 | disposition home health service (06) | DRG 193 ==
LOC: PHED 14:50 → PHEDA 16:56 → PH3B 18:02 → PHICU 02-03 14:03 → PH3B 02-05 17:56 → PHICU 02-07 02:23
PROVIDERS: ADMIT Hospitalist; ATTEND Hospitalist
DX: J18.9 Pneumonia, unspecified organism (principal); J96.01 Acute respiratory failure with hypoxia; J90 Pleural effusion, not elsewhere classified; B37.0 Candidal stomatitis; F05 Delirium due to known physiological condition; G30.9 Alzheimer's disease, unspecified; F02.80 Dementia in other diseases classified elsewhere, unspecified severity, without behavioral disturbance, psychotic disturbance, mood disturbance, and anxiety; R13.13 Dysphagia, pharyngeal phase; N18.3 Chronic kidney disease, stage 3 (moderate); E78.5 Hyperlipidemia, unspecified; I25.10 Atherosclerotic heart disease of native coronary artery without angina pectoris; E21.3 Hyperparathyroidism, unspecified; K21.9 Gastro-esophageal reflux disease without esophagitis; R32 Unspecified urinary incontinence; R15.9 Full incontinence of feces; T65.811A Toxic effect of latex, accidental (unintentional), initial encounter; M81.0 Age-related osteoporosis without current pathological fracture; H40.9 Unspecified glaucoma; H54.7 Unspecified visual loss; H91.93 Unspecified hearing loss, bilateral; R22.0 Localized swelling, mass and lump, head; F32.9 Major depressive disorder, single episode, unspecified; F41.9 Anxiety disorder, unspecified; Z66 Do not resuscitate; Z68.23 Body mass index [BMI] 23.0-23.9, adult; Z78.1 Physical restraint status; Z88.0 Allergy status to penicillin; Z95.1 Presence of aortocoronary bypass graft; Z96.642 Presence of left artificial hip joint
CPT/HCPCS: 36600; 71010; 71250; 80048; 80053; 81001; 82805; 82948; 83605; 85025; 86403; 87040; 87070; 87086; 87205; 87804; 94620; 94640; 94664; 99291; J0692; J1200; J1956; J2405; J2930; J3370; J7030; J7040; J7050; J7070; P9612